=== PATIENT | male | born 1940 | race African-American/Black ===

== ENCOUNTER → 2018-12-12 | Outpatient (CLI) | payer MEDICARE ==
[~2018-12-12] MED LIST: AMLO10TA82 PO; ASP81TEC PO; ATOR80TA PO; CARV12.53 PO; FAMO20TA5 PO; HYDR-3004 PO; ISOS30TA3 PO; LISI10TA PO; NTR.4SL SL; WRF5T PO
[2018-12-12 09:40] LABS: ALANINE AMINOTRANSFERASE 37 U/L (0-55); ALBUMIN 4.6 GM/DL (3.2-4.5); ALKALINE PHOSPHATASE 74 U/L (40-136); BILIRUBIN,TOTAL 0.7 MG/DL (0.1-1.0); BUN/CREATININE RATIO 11; CALCIUM 9.5 MG/DL (8.5-10.1); CARBON DIOXIDE 26 MMOL/L (21-32); CHLORIDE 101 MMOL/L (98-107); CREATININE SERUM 1.31 MG/DL (0.60-1.30); GFR ESTIMATED > 60; GLUCOSE 121 MG/DL (70-105); POTASSIUM 4.6 MMOL/L (3.6-5.0); SODIUM 139 MMOL/L (135-145); TOTAL PROTEIN 7.7 GM/DL (6.4-8.2)
[2018-12-12 16:03] LABS: FREE T4 (FREE THYROXINE) 1.11 NG/DL (0.70-1.48)
== END ==
LOC: LAB FS 08:26
PROVIDERS: ATTEND Pediatrics
DX: I10 Essential (primary) hypertension (principal); E03.9 Hypothyroidism, unspecified; E11.9 Type 2 diabetes mellitus without complications
CPT/HCPCS: 36415; 80053; 80061; 83036; 84439; 84443

== ENCOUNTER → 2018-12-23 | Outpatient (CLI) | payer MEDICARE ==
--- NOTE | 2018-12-23 10:23 | Diagnostic Imaging Report ---
INDICATION: Left-sided sciatica pain TECHNIQUE: AP pelvis 9:48 AM CORRELATION STUDY: None FINDINGS: No acute pelvic fracture with the pectineal lines maintained. Other enthesopathy about the iliac crest. SI joints appear unremarkable. There is somewhat asymmetric expanded appearance about the left inferior pubic rami and ischial tuberosity. This is likely not chronic in nature. While somewhat atypical, possibility of Paget's would be difficult to exclude. The bilateral hip joints demonstrate mild asymmetric narrowing of the left compared to the right. Extensive vascular calcification. Radiation seed implants at the expected location of the prostate bed. IMPRESSION: Negative for acute bony abnormality about the pelvis. Expanded appearance about the left inferior pubic ramus likely chronic of no significance. Dictated by: Dictated on workstation # [id number]
--- NOTE | 2018-12-23 10:25 | Diagnostic Imaging Report ---
INDICATION: Left-sided sciatica, pain in buttocks TECHNIQUE: AP, Lateral and Spot imaging of the lumbar spine CORRELATION STUDY: None FINDINGS: Mild rightward curvature lumbar spine. Trace anterolisthesis L4 on L5 and L5 on S1 likely degenerative. Multilevel disc space narrowing throughout the most pronounced L5-S1 level. Rather pronounced hypertrophic facet arthropathy L4-5 and L5-S1 level. Very slight asymmetric sclerosis about superior L3 endplate. SI joints appearing unremarkable. Dense vascular calcification present. Radiation seed implants are present. Mild degenerative change joint space narrowing of bilateral hip joints. IMPRESSION: Advance multiple degenerative change with hypertrophic facet arthropathy particularly lower lumbar spine. Component of foraminal narrowing owing to the hypertrophic changes not excluded and suspect. Dictated by: Dictated on workstation # [id number]
--- NOTE | 2018-12-23 10:51 | Diagnostic Imaging Report ---
INDICATION: Buttock pain. COMPARISON: AP pelvis performed concurrently. TECHNIQUE: Lateral view of the pelvis/sacrum. FINDINGS AND IMPRESSION: 1. No displaced fracture in the sacrum or coccyx. 2. Extensive vascular calcifications are noted. 3. Please see lumbar spine dictation for details of the degenerative changes of the lumbar spine. Dictated by: Dictated on workstation # [id number]
== END ==
LOC: RAD FS 09:23
PROVIDERS: ATTEND Nurse Practitioner
DX: M47.816 Spondylosis without myelopathy or radiculopathy, lumbar region (principal); M46.87 Other specified inflammatory spondylopathies, lumbosacral region; R52 Pain, unspecified
CPT/HCPCS: 72100; 72170

== ENCOUNTER → 2019-11-04 | Outpatient (CLI) | payer OTHER ==
--- NOTE | 2019-11-04 11:50 | Diagnostic Imaging Report ---
Indication: Coronary artery disease PA and lateral chest There are postoperative changes from CABG surgery. There is a unipolar pacemaker with ICD. Heart is mildly enlarged. Pulmonary vascularity is normal. Lungs are clear. There are no effusions or pneumothoraces. IMPRESSION: Postsurgical changes in the chest. Mild cardiomegaly without evidence of pulmonary venous hypertension. Dictated by: Dictated on workstation # [id number]
== END ==
LOC: RAD FS 11:02
PROVIDERS: ATTEND Internal Medicine Clinical Cardiac Electrophysiology
DX: Z01.818 Encounter for other preprocedural examination (principal); Z45.02 Encounter for adjustment and management of automatic implantable cardiac defibrillator; I47.2 Ventricular tachycardia; I25.10 Atherosclerotic heart disease of native coronary artery without angina pectoris; I51.7 Cardiomegaly; Z95.810 Presence of automatic (implantable) cardiac defibrillator; Z95.1 Presence of aortocoronary bypass graft
CPT/HCPCS: 71046

== ENCOUNTER → 2019-11-04 | Outpatient (CLI) | payer MEDICARE, OTHER ==
[2019-11-04 12:33] LABS: BASOPHILS % (AUTO) 1 % (0-10); EOSINOPHILS % (AUTO) 4 % (0-10); HEMATOCRIT 44 % (40-54); HEMOGLOBIN 14.4 G/DL (13.3-17.7); LYMPHOCYTES # (AUTO) 1.2 X 10^3 (1.0-4.0); LYMPHOCYTES % (AUTO) 25 % (12-44); MEAN CORPUSCULAR HEMOGLOBIN 30 PG (25-34); MEAN CORPUSCULAR HGB CONC 33 G/DL (32-36); MEAN CORPUSCULAR VOLUME 91 FL (80-99); MEAN PLATELET VOLUME 12.6 FL (7.4-10.4); MONOCYTES # (AUTO) 0.7 X 10^3 (0.0-1.0); MONOCYTES % (AUTO) 15 % (0-12); NEUTROPHILS # (AUTO) 2.7 X 10^3 (1.8-7.8); NEUTROPHILS % (AUTO) 55 % (42-75); PLATELET COUNT 188 10^3/uL (130-400); RED CELL DISTRIBUTION WIDTH 13.7 % (10.0-14.5); WHITE BLOOD COUNT 4.8 10^3/uL (4.3-11.0)
[2019-11-04 12:34] LABS: INR 1.2 (0.8-1.4); PROTHROMBIN TIME PATIENT 15.2 SEC (12.2-14.7)
[2019-11-04 12:34] LABS: EOSINOPHILS # (AUTO) 0.2 10^3/uL (0.0-0.3)
[2019-11-04 12:36] LABS: BUN/CREATININE RATIO 14; CALCIUM 9.5 MG/DL (8.5-10.1); CARBON DIOXIDE 26 MMOL/L (21-32); CHLORIDE 103 MMOL/L (98-107); CREATININE SERUM 1.18 MG/DL (0.60-1.30); GFR ESTIMATED > 60; GLUCOSE 105 MG/DL (70-105); MAGNESIUM 2.1 MG/DL (1.6-2.4); POTASSIUM 4.3 MMOL/L (3.6-5.0); SODIUM 140 MMOL/L (135-145)
== END ==
LOC: LAB FS 11:11
PROVIDERS: ATTEND Internal Medicine Clinical Cardiac Electrophysiology
DX: Z45.02 Encounter for adjustment and management of automatic implantable cardiac defibrillator (principal); Z01.818 Encounter for other preprocedural examination; I47.2 Ventricular tachycardia; Z95.1 Presence of aortocoronary bypass graft
CPT/HCPCS: 36415; 80048; 83735; 85025; 85610; 85730

== ENCOUNTER 2020-01-19 23:23 | Emergency (ER) | payer MEDICARE ==
[~2020-01-19] VITALS: Ht 180.3 cm; Wt 118.1 kg
--- OUTSIDE RECORDS SUMMARY | 2020-01-19 23:30 | XMS REPORT | Continuity of Care Document ---
Author Organization Unknown Address Unknown Phone Unavailable Allergies Active Description Code Type Severity Reaction Onset Reported/Identified Relationship to Patient Clinical Status Yes Iodinated Contrast Media [id number] Drug Allergy Unknown N/A 12/18/2011 Yes Iodinated Contrast- Oral and IV Dye [id number] Drug Allergy Unknown N/A 12/18/2011 Medications There is no data. Problems Date Dx Coded Attending Type Code Diagnosis Diagnosed By 12/15/2018 MADINA DEL CID MD, Ot E03.9 HYPOTHYROIDISM, UNSPECIFIED 12/15/2018 MADINA DEL CID MD, Ot E11.9 TYPE 2 DIABETES MELLITUS WITHOUT COMPLIC 12/15/2018 MADINA DEL CID MD, Ot I10 ESSENTIAL (PRIMARY) HYPERTENSION 12/23/2018 MARCELL OCASIOP Ot M46.87 OT INFLAMMATORY SPONDYLOPATHIES, LUMBOS 12/23/2018 MARCELL OCASIOP Ot M47.816 SPONDYLOSIS W/O MYELOPATHY OR RADICULOPA 12/23/2018 MARCELL OCASIOP Ot R5 2 PAIN, UNSPECIFIED 12/24/2018 MARCELL OCASIO Ot M46.87 OT INFLAMMATORY SPONDYLOPATHIES, LUMBOS 12/24/2018 MARCELL OCASIOP Ot M47.816 SPONDYLOSIS W/O MYELOPATHY OR RADICULOPA 12/24/2018 MARCELL OCASIOP Ot R5 2 PAIN, UNSPECIFIED 05/18/2019 MARCELL OCASIO CASH ANALYST Ot M46.87 OT INFLAMMATORY SPONDYLOPATHIES, LUMBOS 05/18/2019 MARCELL OCASIOP Ot M47.816 SPONDYLOSIS W/O MYELOPATHY OR RADICULOPA 05/18/2019 MARCELL OCASIO Ot R5 2 PAIN, UNSPECIFIED 11/04/2019 MADINA DEL CID MD, Ot E03.9 HYPOTHYROIDISM, UNSPECIFIED 11/04/2019 MADINA DEL CID MD Ot E11.9 TYPE 2 DIABETES MELLITUS WITHOUT COMPLIC 11/04/2019 MADINA DEL CID MD, Ot I10 ESSENTIAL (PRIMARY) HYPERTENSION 11/04/2019 MARCELL OCASIO Ot M46.87 OT INFLAMMATORY SPONDYLOPATHIES, LUMBOS 11/04/2019 MARCELL OCASIO Ot M47.816 SPONDYLOSIS W/O MYELOPATHY OR RADICULOPA 11/04/2019 MARCELL OCASIO Ot R5 2 PAIN, UNSPECIFIED 11/06/2019 CHER MCCLAIN MD Ot I47 .2 VENTRICULAR TACHYCARDIA 11/06/2019 CHER MCCLAIN MD Ot Z01.818 ENCOUNTER FOR OTHER PREPROCEDURAL EXAMIN 11/06/2019 CHER MCCLAIN MD Ot Z45.02 ENCNTR FOR ADJUST AND MGMT OF AUTOMATIC 11/06/2019 CHER MCCLAIN MD Ot Z95 .1 PRESENCE OF AORTOCORONARY BYPASS GRAFT 11/06/2019 MADINA DEL CID MD Ot E03.9 HYPOTHYROIDISM, UNSPECIFIED 11/06/2019 MADINA DEL CID MD Ot E11.9 TYPE 2 DIABETES MELLITUS WITHOUT COMPLIC 11/06/2019 MADINA DEL CID MD Ot I10 ESSENTIAL (PRIMARY) HYPERTENSION 11/06/2019 MARCELL OCASIO Ot M46.87 OT INFLAMMATORY SPONDYLOPATHIES, LUMBOS 11/06/2019 MARCELL OCASIO Ot M47.816 SPONDYLOSIS W/O MYELOPATHY OR RADICULOPA 11/06/2019 MARCELL OCASIO Ot R5 2 PAIN, UNSPECIFIED 11/06/2019 CHER MCCLAIN MD Ot I47 .2 VENTRICULAR TACHYCARDIA 11/06/2019 CHER MCCLAIN MD Ot Z01.818 ENCOUNTER FOR OTHER PREPROCEDURAL EXAMIN 11/06/2019 CHER MCCLAIN MD Ot Z45.02 ENCNTR FOR ADJUST AND MGMT OF AUTOMATIC 11/06/2019 CHER MCCLAIN MD Ot Z95 .1 PRESENCE OF AORTOCORONARY BYPASS GRAFT 11/07/2019 CHER MCCLAIN MD Ot I47 .2 VENTRICULAR TACHYCARDIA 11/07/2019 CHER MCCLAIN MD Ot Z01.818 ENCOUNTER FOR OTHER PREPROCEDURAL EXAMIN 11/07/2019 CHER MCCLAIN MD Ot Z45.02 ENCNTR FOR ADJUST AND MGMT OF AUTOMATIC 11/07/2019 CHER MCCLAIN MD Ot Z95 .1 PRESENCE OF AORTOCORONARY BYPASS GRAFT Procedures There is no data. Results Test Result Range Comprehensive metabolic panel - 12/12/18 08:55 Serum or plasma sodium measurement (moles/volume) 139 mmol/L 135-145 Serum or plasma potassium measurement (moles/volume) 4.6 mmol/L 3.6-5.0 Serum or plasma chloride measurement (moles/volume) 101 mmol/L 98-107 Carbon dioxide 26 mmol/L 21-32 Serum or plasma anion gap determination (moles/volume) 12 mmol/L 5-14 Serum or plasma urea nitrogen measurement (mass/volume ) 15 mg/dL 7-18 Serum or plasma creatinine measurement (mass/volume) 1.31 mg/dL 0.60-1.30 Serum or plasma urea nitrogen/creatinine mass ratio 11 NRG Serum or plasma creatinine measurement w ith calculation of estimated glomerular filtration rate > NRG Serum or plasma glucose measurement (mass/volume) 121 mg/dL 70-105 Serum or plasma calcium measurement (mass/volume) 9.5 mg/dL 8.5-10.1 Serum or plasma total bilirubin measurement (mass/volu me) 0.7 mg/dL 0.1-1.0 Serum or plasma alkaline phosphatase [place] surement (enzymatic activity/volume) 74 U/L 40-136 Serum or plasma aspartate aminotransfera se measurement (enzymatic activity/volume) 25 U/L 5-34 Serum or plasma alanine aminotransferase measurement (enzymatic activity/volume) 37 U/L 0-55 Serum or plasma protein measurement (mass/volume) 7.7 g/dL 6.4-8.2 Serum or plasma albumin measurement (mass/volume) 4.6 g/dL 3.2-4.5 Lipid 1996 panel - 12/12/18 08:55 Serum or plasma triglyceride measurement (mass/volume) 56 mg/dL <150 Serum or plasma cholesterol measurement (mass/volume) 167 mg/dL < 200 Serum or plasma cholesterol in HDL measurement (mass/v olume) 36 mg/dL 40-60 Cholesterol in LDL [mass/volume] in serum or plasma by direct assay 118 mg/dL 1-129 Serum or plasma cholesterol in VLDL measurement (mass/ volume) 11 mg/dL 5-40 THYROID STIMULATING HORMONE - 12/12/18 0 8:55 THYROID STIMULATING HORMONE 1.76 u[iU]/mL 0.35-4.94 Serum or plasma thyroxine (T4) free jeff urement (mass/volume) - 12/12/18 08:55 Serum or plasma thyroxine (T4) free measurement (mass/ volume) 1.11 ng/dL 0.70-1.48 Hemoglobin A1c - 12/12/18 08:55 Blood hemoglobin A1C measurement (mass/volume) 6.3 % 4.0-5.6 MEAN BLOOD GLUCOSE 134 % <=126 Complete blood count (CBC) with automate d white blood cell (WBC) differential - 11/04/19 11:22 Blood leukocytes automated count (number/volume) 4.8 10*3/uL 4.3-11.0 Blood erythrocytes automated count (number/volume) 4.81 10*6/uL 4.35-5.85 Venous blood hemoglobin measurement (mass/volume) 14.4 g/dL 13.3-17.7 Blood hematocrit (volume fraction) 44 % 40-54 Automated erythrocyte mean corpuscular volume 91 [ foz_us] 80-99 Automated erythrocyte mean corpuscular h emoglobin (mass per erythrocyte) 30 pg 25-34 Automated erythrocyte mean corpuscular h emoglobin concentration measurement (mass/volume) 33 g/dL 32-36 Automated erythrocyte distribution width ratio 13. 7 % 10.0- 14.5 Automated blood platelet count (count/volume) 188 10*3/uL 130-400 Automated blood platelet mean volume measurement 12.6 [foz_us] 7.4-10.4 Automated blood neutrophils/100 leukocytes 55 % 42-75 Automated blood lymphocytes/100 leukocytes 25 % 12-44 Blood monocytes/100 leukocytes 15 % 0-12 Automated blood eosinophils/100 leukocytes 4 % 0-10 Automated blood basophils/100 leukocytes 1 % 0-10 Blood neutrophils automated count (number/volume) 2.7 10*3 1.8-7.8 Blood lymphocytes automated count (number/volume) 1.2 10*3 1.0-4.0 Blood monocytes automated count (number/volume) 0. 7 10*3 0.0-1.0 Automated eosinophil count 0.2 10*3/uL 0 .0-0.3 Automated blood basophil count (count/volume) 0.0 10*3/uL 0.0-0.1 Whole blood basic metabolic panel - 10/11 02/26 11:22 Serum or plasma sodium measurement (moles/volume) 140 mmol/L 135-145 Serum or plasma potassium measurement (moles/volume) 4.3 mmol/L 3.6-5.0 Serum or plasma chloride measurement (moles/volume) 103 mmol/L 98-107 Carbon dioxide 26 mmol/L 21-32 Serum or plasma anion gap determination (moles/volume) 11 mmol/L 5-14 Serum or plasma urea nitrogen measurement (mass/volume ) 16 mg/dL 7-18 Serum or plasma creatinine measurement (mass/volume) 1.18 mg/dL 0.60-1.30 Serum or plasma urea nitrogen/creatinine mass ratio 14 NRG Serum or plasma creatinine measurement w ith calculation of estimated glomerular filtration rate > NRG Serum or plasma glucose measurement (mass/volume) 105 mg/dL 70-105 Serum or plasma calcium measurement (mass/volume) 9.5 mg/dL 8.5-10.1 Magnesium - 11/04/19 11:22 Magnesium 2.1 mg/dL 1.6-2.4 PT panel in platelet poor plasma by coag ulation assay - 11/04/19 11:35 Prothrombin time (PT) in platelet poor plasma by coagu lation assay 15.2 s 12.2-14.7 INR in platelet poor plasma or blood by coagulation as say 1.2 0.8-1.4 Activated partial thromboplastin time (a PTT) in platelet poor plasma bycoagulation assay - 11/04/19 11:35 Activated partial thromboplastin time (a PTT) in platelet poor plasma bycoagulation assay 33 s 24-35 Encounters ACCT No. Visit Date/Time Discharge Status Pt. Type Provider Facility Loc./Unit Complaint [id number] 11/04/2019 11:11:00 020 23:59:59 CLS Outpatient CHER MCCLIAN MD [facility] LAB FS CBC MAGNESIUM BMP PROTIME PTT [id number] 11/04/2019 11:02:00 020 23:59:59 CLS Outpatient CHER MCCLAIN MD [facility] RAD FS Z95.1 I47.2 Z45.02 Z01.818 [id number] 12/23/2018 09:23:00 019 23:59:59 CLS Outpatient MARCELL OCASIO [facility] RAD FS R52; G57.02 [id number] 12/12/2018 08:26:00 019 23:59:59 CLS Outpatient NEHEMIAS PARIS, MADINA seaman [facility] LAB FS 401.9
--- NOTE | 2020-01-19 23:49 | ED Cardiac General ---
History of Present Illness General Stated Complaint: DEFIBRILATOR DISCHARGE Source: patient, EMS Exam Limitations: no limitations History of Present Illness Date Seen by Provider: January 19, 2020 Time Seen by Provider: 23:40 Initial Comments Patient presents w concern of his defibrillator going off. Says he felt a little light headed and like he was losing vision, then it shocked him. Never lost consciousness. Called 911. Denies CP or SOA. En -route w EMS, Defib discharged a second time w preceding sensation of light headedness. Hx CAD w CABG. REcent replacement of pacemaker/ defibrillator in November @ [facility] because his previous was getting too old. Has had no problems w this one until today. Allergies and Home Medications Allergies Coded Allergies: Iodinated Contrast Media (Unverified Allergy, Unknown, 01/20/20) Home Medications Amiodarone HCl 200 Mg Tablet, 200 MG PO DAILY, (Reported) Amlodipine Besylate 10 Mg Tablet, 1 EACH PO DAILY, (Reported) Apixaban 5 Mg Tablet, 5 MG PO DAILY, (Reported) Atorvastatin Calcium 80 Mg Tablet, 1 EACH PO DAILY, (Reported) Carvedilol 25 Mg Tablet, 25 MG PO BID, (Reported) Furosemide 40 Mg Tablet, 40 MG PO DAILY, (Reported) Hydralazine Hcl 50 Mg Tablet, 1 EACH PO TID, (Reported) Hydrocodone/Acetaminophen 1 Each Tablet, 1 EACH PO Q4H PRN for PAIN-MILD (1-4), (Reported) Isosorbide Mononitrate 30 Mg Tab.sr.24h, 1 EACH PO DAILY, (Reported) Lisinopril 10 Mg Tablet, 10 MG PO DAILY, (Reported) Nitroglycerin 0.4 Mg Subl, 0.4 MG SL NEEDED, (Reported) Potassium Chloride 20 Meq Tab.er.prt, 20 MEQ PO DAILY, (Reported) Spironolactone 25 Mg Tablet, 12.5 MG PO DAILY, (Reported) Tamsulosin HCl 0.4 Mg Cap, 0.4 MG PO DAILY, (Reported) Patient Home Medication List Home Medication List Reviewed: Yes Review of Systems Review of Systems Constitutional: dizziness (preceding defibrillator discharging); No fever, No malaise, No weakness Cardiovascular: See HPI; Denies Chest Pain, Denies Edema, Denies Irregular Heart Rate; Lightheadedness; Denies Palpitations, Denies Syncope Gastrointestinal: Denies Abdominal Pain, Denies Diarrhea, Denies Poor Appetite, Denies Vomiting Musculoskeletal: No back pain, No joint pain Skin: No change in color Psychiatric/Neurological: Denies Headache, Denies Numbness, Denies Paresthesia Past Mavomxc-Qeciup-Iolwvf Hx Past Med/Social Hx: Reviewed Nursing Past Med/Soc Hx Patient Social History Recent Foreign Travel: No Contact w/Someone Who Travel: No Past Medical History Reproductive Disorders: No Physical Exam Vital Signs Vital Signs - First Documented 01/19/20 23:24 Temp 36.9 Pulse 67 Resp 20 B/P (MAP) 145/78 (100) Pulse Ox 94 O2 Delivery Room Air Capillary Refill : Height, Weight, BMI Height: '" Weight: lbs. oz. kg; BMI Method: General Appearance: No Apparent Distress, WD/WN HEENT: Normal ENT Inspection Neck: Full Range of Motion, Non Tender, Supple; No JVD Respiratory: Chest Non Tender, Lungs Clear, Normal Breath Sounds, No Accessory Muscle Use, No Respiratory Distress Cardiovascular: Regular Rate, Rhythm, No Edema, No Gallop, No JVD Gastrointestinal: Non Tender, Soft Extremity: Normal Capillary Refill, Normal Inspection, Normal Range of Motion, Non Tender, No Calf Tenderness Neurologic/Psychiatric: Alert, Oriented x3, No Motor/Sensory Deficits Skin: Normal Color, Warm/Dry Progress/Results/Core Measures Results/Orders Lab Results Laboratory Tests Test 01/19/20 23:36 Range/Units White Blood Count 5.6 4.3-11.0 10^3/uL Red Blood Count 4.51 4.35-5.85 10^6/uL Hemoglobin 13.9 13.3-17.7 G/DL Hematocrit 42 40-54 % Mean Corpuscular Volume 92 80-99 FL Mean Corpuscular Hemoglobin 31 25-34 PG Mean Corpuscular Hemoglobin Concent 34 32-36 G/DL Red Cell Distribution Width 13.7 10.0-14.5 % Platelet Count 178 130-400 10^3/uL Mean Platelet Volume 11.7 H 7.4-10.4 FL Neutrophils (%) (Auto) 54 42-75 % Lymphocytes (%) (Auto) 29 12-44 % Monocytes (%) (Auto) 11 0-12 % Eosinophils (%) (Auto) 5 0-10 % Basophils (%) (Auto) 1 0-10 % Neutrophils # (Auto) 3.0 1.8-7.8 X 10^3 Lymphocytes # (Auto) 1.6 1.0-4.0 X 10^3 Monocytes # (Auto) 0.6 0.0-1.0 X 10^3 Eosinophils # (Auto) 0.3 0.0-0.3 10^3/uL Basophils # (Auto) 0.0 0.0-0.1 10^3/uL Prothrombin Time 15.8 H 12.2-14.7 SEC INR Comment 1.2 0.8-1.4 Sodium Level 139 135-145 MMOL/L Potassium Level 4.1 3.6-5.0 MMOL/L Chloride Level 103 98-107 MMOL/L Carbon Dioxide Level 24 21-32 MMOL/L Anion Gap 12 5-14 MMOL/L Blood Urea Nitrogen 24 H 7-18 MG/DL Creatinine 1.19 0.60-1.30 MG/DL Estimat Glomerular Filtration Rate > 60 BUN/Creatinine Ratio 20 Glucose Level 126 H 70-105 MG/DL Calcium Level 9.5 8.5-10.1 MG/DL Corrected Calcium 9.3 8.5-10.1 MG/DL Magnesium Level 1.8 1.6-2.4 MG/DL Total Bilirubin 0.5 0.1-1.0 MG/DL Aspartate Amino Transf (AST/SGOT) 33 5-34 U/L Alanine Aminotransferase (ALT/SGPT) 48 0-55 U/L Alkaline Phosphatase 95 40-136 U/L Troponin I < 0.30 <0.30 NG/ML Total Protein 7.0 6.4-8.2 GM/DL Albumin 4.3 3.2-4.5 GM/DL My Orders Orders - ROVENSTINE,SANDRA L DO Ed Iv/Invasive Line Start (01/19/20 23:44) Chest 1 View Ap/Pa Only (01/19/20 23:44) Ekg Tracing (01/19/20 23:44) Cbc With Automated Diff (01/19/20 23:44) Comprehensive Metabolic Panel (01/19/20 23:44) Magnesium (01/19/20 23:44) Troponin I Fs (01/19/20 23:44) Protime With Inr (01/19/20 23:44) Magnesium 1 Gm/100 Ml Ivpb (Magnesium Bell (01/20/20 00:45) Vital Signs/I&O 01/19/20 23:24 Temp 36.9 Pulse 67 Resp 20 B/P (MAP) 145/78 (100) Pulse Ox 94 O2 Delivery Room Air Progress Progress Note : Progress Note Uneventful ER stay. Normal eval without acute abnl. Transfer to [facility] for further eval Initial ECG Impression Time: 23:40 Initial ECG Rate: 65 Initial ECG Intervals: Normal Comment paced rhythm. IVCD. Departure Communication (Admissions) 0014- called Dr Smith, advised to call Cardio 0015- spoke to Dr Bustamante, says he is happy to admit pt, but he would better be served where he has been receiving care as he will need further eval and possible tx. 0040- spoke to Dr Reyes @ [facility] who accepts for transfer to their ICU. Advises 2 g Mag IV Impression Primary Impression: Defibrillator discharge Disposition: XFER SHT-TRM HOSP Condition: Stable Admissions Decision to Admit Reason: Admit from ER (General) Time/Decision to Admit Time: 23:51 Departure-Patient Inst. Referrals: MADINA DEL CID MD (PCP/Family) Primary Care Physician SANDRA HUNTER DO January 19, 2020 23:49
[2020-01-19 23:54] LABS: HEMATOCRIT 42 % (40-54); HEMOGLOBIN 13.9 G/DL (13.3-17.7); MEAN CORPUSCULAR HEMOGLOBIN 31 PG (25-34); MEAN CORPUSCULAR HGB CONC 34 G/DL (32-36); MEAN CORPUSCULAR VOLUME 92 FL (80-99); PLATELET COUNT 178 10^3/uL (130-400); RED CELL DISTRIBUTION WIDTH 13.7 % (10.0-14.5); WHITE BLOOD COUNT 5.6 10^3/uL (4.3-11.0)
[2020-01-19 23:55] LABS: BASOPHILS % (AUTO) 1 % (0-10); EOSINOPHILS # (AUTO) 0.3 10^3/uL (0.0-0.3); EOSINOPHILS % (AUTO) 5 % (0-10); LYMPHOCYTES # (AUTO) 1.6 X 10^3 (1.0-4.0); LYMPHOCYTES % (AUTO) 29 % (12-44); MEAN PLATELET VOLUME 11.7 FL (7.4-10.4); MONOCYTES # (AUTO) 0.6 X 10^3 (0.0-1.0); MONOCYTES % (AUTO) 11 % (0-12); NEUTROPHILS % (AUTO) 54 % (42-75)
[2020-01-20 00:01] LABS: INR 1.2 (0.8-1.4); PROTHROMBIN TIME PATIENT 15.8 SEC (12.2-14.7)
[2020-01-20 00:06] LABS: BILIRUBIN,TOTAL 0.5 MG/DL (0.1-1.0); BUN/CREATININE RATIO 20; CALCIUM 9.5 MG/DL (8.5-10.1); CARBON DIOXIDE 24 MMOL/L (21-32); CHLORIDE 103 MMOL/L (98-107); CREATININE SERUM 1.19 MG/DL (0.60-1.30); GFR ESTIMATED > 60; GLUCOSE 126 MG/DL (70-105); MAGNESIUM 1.8 MG/DL (1.6-2.4); POTASSIUM 4.1 MMOL/L (3.6-5.0); SODIUM 139 MMOL/L (135-145)
[2020-01-20 00:07] LABS: ALANINE AMINOTRANSFERASE 48 U/L (0-55); ALBUMIN 4.3 GM/DL (3.2-4.5); ALKALINE PHOSPHATASE 95 U/L (40-136)
[2020-01-20] MEDS ORDERED: APIX5TAB PO (00:11)
[2020-01-20] MEDS ORDERED: HYDR-83 PO (00:11)
[2020-01-20] MEDS ORDERED: SPIR25TA PO (00:11)
[2020-01-20] MEDS ORDERED: FURO-124 PO (00:11)
[2020-01-20] MEDS ORDERED: AMIO200T4 PO (00:11)
[2020-01-20] MEDS ORDERED: TMSL.4C PO (00:11)
[2020-01-20] MEDS ORDERED: POTA20TA15 PO (00:11)
[2020-01-20] MEDS ORDERED: CARV25TA PO (00:11)
[2020-01-20] MEDS ORDERED: MAGNESIUM 1 GM/100 ML IVPB 100 ML IV SCH (00:45)
[2020-01-20 01:08] VITALS: BP 121/65
--- NOTE | 2020-01-20 07:24 | Diagnostic Imaging Report ---
INDICATION: Defibrillator discharging. EXAMINATION: Chest 01/19/2020 COMPARISON: 11/04/2019 FINDINGS: Left-sided defibrillator device is noted and stable from previous with sternotomy wires and other mediastinal clips present. Heart is enlarged. Pulmonary vasculature appears slightly congested. There are no infiltrates or effusions. Mild pulmonary edema suspected. IMPRESSION: 1. Likely mild pulmonary edema. Post surgical changes as above. Dictated by: Dictated on workstation # [id number]
== END 2020-01-20 01:08 | disposition short-term general hospital (02) ==
LOC: EDUNIT# 23:23 → ER FS 23:26
DX: T82.198A Other mechanical complication of other cardiac electronic device, initial encounter (principal); I25.10 Atherosclerotic heart disease of native coronary artery without angina pectoris; Z79.01 Long term (current) use of anticoagulants; Z95.1 Presence of aortocoronary bypass graft
CPT/HCPCS: 36415; 71045; 80053; 83735; 84484; 85025; 85610; 93005; 96365

== ENCOUNTER 2020-01-27 09:57 | Emergency (ER) | payer MEDICARE ==
[~2020-01-27] VITALS: Ht 180.3 cm; Wt 118.2 kg
[~2020-01-27 09:57] MED LIST changes: +AMIO200T4 PO; +APIX5TAB PO; +CARV25TA PO; +FURO-124 PO; +HYDR-83 PO; +POTA20TA15 PO; +SPIR25TA PO; +TMSL.4C PO
[2020-01-27] MEDS ORDERED: ONDANSETRON 4 MG/2 ML (SDV) Z0FRAN IVP ONE (10:15)
[2020-01-27] MEDS ORDERED: NS IV 1000 ML 1,000 ML IV SCH (10:15)
--- NOTE | 2020-01-27 10:15 | ED General ---
General Chief Complaint: Cardiac/General Problems History of Present Illness Date Seen by Provider: January 27, 2020 Time Seen by Provider: 10:12 Initial Comments Patient presenting to emergency department via EMS for evaluation of a near syncopal episode. He was on the toilet trying to have a bowel movement when he started to become very lightheaded and as if he could pass out and asked his for assistance. He never did lose consciousness but said he felt very nauseated. He had some orthostasis for EMS but says he is feeling better now with just some mild lightheaded sensation and nausea. He denies any pain vision changes unilateral weakness numbness or tingling before or after the episode. He was seen in this emergency department 8 days ago and was transferred to [facility] as his defibrillator was going off and had a heart catheterization however there was no critical stenoses. He does have a history of a CABG. He denies any defibrillations or shocks today. He is in no obvious distress with normal vital signs. Allergies and Home Medications Allergies Coded Allergies: Iodinated Contrast Media (Unverified Allergy, Unknown, 01/20/20) Home Medications Amiodarone HCl 200 Mg Tablet, 200 MG PO DAILY, (Reported) Amlodipine Besylate 10 Mg Tablet, 1 EACH PO DAILY, (Reported) Apixaban 5 Mg Tablet, 5 MG PO DAILY, (Reported) Atorvastatin Calcium 80 Mg Tablet, 1 EACH PO DAILY, (Reported) Carvedilol 25 Mg Tablet, 25 MG PO BID, (Reported) Furosemide 40 Mg Tablet, 40 MG PO DAILY, (Reported) Hydralazine Hcl 50 Mg Tablet, 1 EACH PO TID, (Reported) Hydrocodone/Acetaminophen 1 Each Tablet, 1 EACH PO Q4H PRN for PAIN-MILD (1-4), (Reported) Isosorbide Mononitrate 30 Mg Tab.sr.24h, 1 EACH PO DAILY, (Reported) Lisinopril 10 Mg Tablet, 10 MG PO DAILY, (Reported) Nitroglycerin 0.4 Mg Subl, 0.4 MG SL NEEDED, (Reported) Potassium Chloride 20 Meq Tab.er.prt, 20 MEQ PO DAILY, (Reported) Spironolactone 25 Mg Tablet, 12.5 MG PO DAILY, (Reported) Tamsulosin HCl 0.4 Mg Cap, 0.4 MG PO DAILY, (Reported) Patient Home Medication List Home Medication List Reviewed: Yes Review of Systems Review of Systems Constitutional: dizziness EENTM: no symptoms reported Respiratory: no symptoms reported Cardiovascular: no symptoms reported Gastrointestinal: nausea Musculoskeletal: no symptoms reported Psychiatric/Neurological: No Symptoms Reported All Other Systems Reviewed Negative Unless Noted: Yes Past Izqujft-Htfjba-Vxpoqe Hx Past Medical History Surgeries: Yes CABG Respiratory: No Cardiac: Yes (CONGESTIVE HEART FAILURE) Hypertension Neurological: Yes Stroke Reproductive Disorders: No Sexually Transmitted Disease: No Genitourinary: No Gastrointestinal: No Musculoskeletal: No Endocrine: No HEENT: No Cancer: Yes Prostate Did You Recieve Any Treatments: Yes What Type of Treatment Did You: Chemotherapy Psychosocial: No Integumentary: No Blood Disorders: No Physical Exam Vital Signs Vital Signs - First Documented 01/27/20 09:57 Temp 36.1 Pulse 69 Resp 24 B/P (MAP) 127/63 (84) Pulse Ox 96 O2 Delivery Room Air Capillary Refill : Height, Weight, BMI Height: '" Weight: lbs. oz. kg; 36.00 BMI Method: General Appearance: No Apparent Distress HEENT: PERRL/EOMI Neck: Supple Respiratory: No Respiratory Distress Cardiovascular: Regular Rate, Rhythm Gastrointestinal: Non Tender, Soft Back: Normal Inspection Extremity: Normal Capillary Refill Neurologic/Psychiatric: Alert, Oriented x3 Skin: Warm/Dry Progress/Results/Core Measures Suspected Sepsis SIRS Temperature: Pulse: Respiratory Rate: Laboratory Tests 01/27/20 11:45: White Blood Count 5.3 Blood Pressure / Mean: Laboratory Tests 01/27/20 11:01: INR Comment 1.3 01/27/20 11:45: Creatinine 1.24, Platelet Count 139, Total Bilirubin 0.8 Results/Orders Lab Results Laboratory Tests Test 01/27/20 11:01 01/27/20 11:45 Range/Units Prothrombin Time 16.2 H 12.2-14.7 SEC INR Comment 1.3 0.8-1.4 Activated Partial Thromboplast Time 25 24-35 SEC White Blood Count 5.3 4.3-11.0 10^3/uL Red Blood Count 4.84 4.35-5.85 10^6/uL Hemoglobin 14.8 13.3-17.7 G/DL Hematocrit 45 40-54 % Mean Corpuscular Volume 93 80-99 FL Mean Corpuscular Hemoglobin 31 25-34 PG Mean Corpuscular Hemoglobin Concent 33 32-36 G/DL Red Cell Distribution Width 13.7 10.0-14.5 % Platelet Count 139 130-400 10^3/uL Mean Platelet Volume 12.2 H 7.4-10.4 FL Neutrophils (%) (Auto) 71 42-75 % Lymphocytes (%) (Auto) 15 12-44 % Monocytes (%) (Auto) 11 0-12 % Eosinophils (%) (Auto) 2 0-10 % Basophils (%) (Auto) 1 0-10 % Neutrophils # (Auto) 3.8 1.8-7.8 X 10^3 Lymphocytes # (Auto) 0.8 L 1.0-4.0 X 10^3 Monocytes # (Auto) 0.6 0.0-1.0 X 10^3 Eosinophils # (Auto) 0.1 0.0-0.3 10^3/uL Basophils # (Auto) 0.0 0.0-0.1 10^3/uL Sodium Level 140 135-145 MMOL/L Potassium Level 4.7 3.6-5.0 MMOL/L Chloride Level 102 98-107 MMOL/L Carbon Dioxide Level 25 21-32 MMOL/L Anion Gap 13 5-14 MMOL/L Blood Urea Nitrogen 16 7-18 MG/DL Creatinine 1.24 0.60-1.30 MG/DL Estimat Glomerular Filtration Rate > 60 BUN/Creatinine Ratio 13 Glucose Level 108 H 70-105 MG/DL Calcium Level 9.4 8.5-10.1 MG/DL Corrected Calcium 9.2 8.5-10.1 MG/DL Magnesium Level 2.0 1.6-2.4 MG/DL Total Bilirubin 0.8 0.1-1.0 MG/DL Aspartate Amino Transf (AST/SGOT) 32 5-34 U/L Alanine Aminotransferase (ALT/SGPT) 52 0-55 U/L Alkaline Phosphatase 95 40-136 U/L Troponin I < 0.30 <0.30 NG/ML Pro-B-Type Natriuretic Peptide 160.2 H <75.0 PG/ML Total Protein 7.3 6.4-8.2 GM/DL Albumin 4.2 3.2-4.5 GM/DL My Orders Orders - NEDRA ESCALONA DO Cbc With Automated Diff (01/27/20 10:03) Comprehensive Metabolic Panel (01/27/20 10:03) Ekg Tracing (01/27/20 10:03) Chest 1 View Ap/Pa Only (01/27/20 10:03) Troponin I Fs (01/27/20 10:03) Probnp Fs (01/27/20 10:03) Partial Thromboplastin Time (01/27/20 10:03) Protime With Inr (01/27/20 10:03) Magnesium (01/27/20 10:03) Ondansetron Injection (Zofran Injectio (01/27/20 10:15) Ns Iv 1000 Ml (Sodium Chloride 0.9%) (01/27/20 10:15) Medications Given in ED Current Medications Medications Dose Ordered Sig/Danni Route Start Time Stop Time Status Last Admin Dose Admin Ondansetron HCl 4 mg ONCE ONCE IVP 01/27/20 10:15 01/27/20 10:16 DC 01/27/20 11:13 4 MG Vital Signs/I&O 01/27/20 09:57 Temp 36.1 Pulse 69 Resp 24 B/P (MAP) 127/63 (84) Pulse Ox 96 O2 Delivery Room Air Capillary Refill : Progress Note : Progress Note Patient with history and physical exam most consistent with a vagal episode. Will check labs treat with IV fluids and Zofran and reassess. Patient's nausea resolved and he felt much less dizzy emergency department. He was able to ambulate without difficulty and his repeat neurologic exam is normal. His EKG is similar to priors and his blood work is normal as well. One thing I did discuss with the patient is that his heart rate and blood pressure has been on the lower side his entire emergency Department visit with his systolic blood pressure ranging from 105 to 1:15 and his diastolic blood pressure ranging from 55-65 and his heart rate ranging in the 60-70 range. He mentioned that he didn't go up on one of his medications after his recent hospitalization he believes his amiodarone was doubled. He did not have an updated medication list with him. I told him I believe he is likely overmedicated with blood pressure medicines and he should have these adjusted but given I do not have his medications that he should call his doctor when he gets home and let him know the symptoms that he is having and see if they want to adjust his medicines and see him in follow-up. Patient was told to follow primary care provider within 2-3 days and come back to the emergency Department sooner with worsening pain neurologic changes or other general concerns. Patient aware and agreeable with plan for discharge and verbalized understanding of the need for short-term follow-up and strict ED return precautions discussed as above. informed us he has pcp appt with Dr. Neves tomorrow. Departure Impression Primary Impression: Vaso vagal episode Additional Impressions: Near syncope Hypotension Nausea alone Disposition: HOME, SELF-CARE Condition: Stable Departure-Patient Inst. Referrals: MADINA NEVES MD (PCP/Family) Primary Care Physician Patient Instructions: Low Blood Pressure (DC), Vasovagal Response (DC) Scripts Ondansetron (Ondansetron Odt) 4 Mg Tab.rapdis 4 MG PO TID PRN for NAUSEA/VOMITING-1ST LINE, #10 TAB Prov: NEDRA ESCALONA DO 01/27/20 NEDRA ESCALONA DO January 27, 2020 10:15
--- NOTE | 2020-01-27 10:21 | Diagnostic Imaging Report ---
INDICATION: Not feeling well. Time of exam: 10:10 AM Correlation is made with prior chest from 01/19/2020. The heart is enlarged but stable. There are changes of median sternotomy and CABG. Cardiac defibrillator remains in place. Lungs appear to be clear. No infiltrate or failure is detected. No effusion or pneumothorax is detected. IMPRESSION: Stable chest. No acute feature is detected. Dictated by: Dictated on workstation # [id number]
--- OUTSIDE RECORDS SUMMARY | 2020-01-27 10:59 | XMS REPORT | Continuity of Care Document ---
Author Organization Unknown Address Unknown Phone Unavailable Allergies Active Description Code Type Severity Reaction Onset Reported/Identified Relationship to Patient Clinical Status Yes Iodinated Contrast- Oral and IV Dye [id number] Drug Allergy Unknown N/A 12/18/2011 Yes Iodinated Contrast Media [id number] Drug Allergy Unknown N/A 01/20/2020 Medications There is no data. Problems Date [...] OCASIOP Ot R5 2 PAIN, UNSPECIFIED 12/24/2018 AMRCELL OCASIO Ot M46.87 OT INFLAMMATORY SPONDYLOPATHIES, LUMBOS 12/24/2018 MARCELL OCASIOP Ot M47.816 SPONDYLOSIS W/O MYELOPATHY OR RADICULOPA 12/24/2018 MARCELL OCASIOP Ot R5 2 PAIN, UNSPECIFIED 05/18/2019 MARCELL OCASIO COOKING SHOW HOST Ot M46.87 OT INFLAMMATORY SPONDYLOPATHIES, LUMBOS 05/18/2019 [...] Z95 .1 PRESENCE OF AORTOCORONARY BYPASS GRAFT 01/22/2020 SANDRA HUNTER DO Ot I25.10 ATHSCL HEART DISEASE OF [place] CORONARY 01/22/2020 ROVENSTINE DO, SANDRA L Ot T82.198A [facility] COMPL OF OTHER CARDIAC ELECTRONIC D 01/22/2020 ROVENSTINE DO, SANDRA Roth Ot Z79.01 SHELTER (CURRENT) USE OF ANTICOAGULANT 01/22/2020 ROVENSTINE DO, SANDRA L Ot Z95.1 PRESENCE OF AORTOCORONARY BYPASS GRAFT 01/25/2020 ROVENSTINE DO, SANDRA L Ot I25.10 ATHSCL HEART DISEASE OF [place] CORONARY 01/25/2020 ROVENSTINE DO, SANDRA Roth Ot T82.198A [facility] COMPL OF OTHER CARDIAC ELECTRONIC D 01/25/2020 ROVENSTINE DO, SANDRA L Ot 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 01/25/2020 ROVENSTINE DO, SANDRA L Ot Z95.1 PRESENCE OF AORTOCORONARY BYPASS GRAFT Procedures There [...] poor plasma bycoagulation assay 33 s 24-35 Complete blood count (CBC) with automate d white blood cell (WBC) differential - 01/19/20 23:36 Blood leukocytes automated count (number/volume) 5.6 10*3/uL 4.3-11.0 Blood erythrocytes automated count (number/volume) 4.51 10*6/uL 4.35-5.85 Venous blood hemoglobin measurement (mass/volume) 13.9 g/dL 13.3-17.7 Blood hematocrit (volume fraction) 42 % 40-54 Automated erythrocyte mean corpuscular volume 92 [ foz_us] 80-99 Automated erythrocyte mean corpuscular h emoglobin (mass per erythrocyte) 31 pg 25-34 Automated erythrocyte mean corpuscular h emoglobin concentration measurement (mass/volume) 34 g/dL 32-36 Automated erythrocyte distribution width ratio 13. 7 % 10.0- 14.5 Automated blood platelet count (count/volume) 178 10*3/uL 130-400 Automated blood platelet mean volume measurement 11.7 [foz_us] 7.4-10.4 Automated blood neutrophils/100 leukocytes 54 % 42-75 Automated blood lymphocytes/100 leukocytes 29 % 12-44 Blood monocytes/100 leukocytes 11 % 0-12 Automated blood eosinophils/100 leukocytes 5 % 0-10 Automated blood basophils/100 leukocytes 1 % 0-10 Blood neutrophils automated count (number/volume) 3.0 10*3 1.8-7.8 Blood lymphocytes automated count (number/volume) 1.6 10*3 1.0-4.0 Blood monocytes automated count (number/volume) 0. 6 10*3 0.0-1.0 Automated eosinophil count 0.3 10*3/uL 0 .0-0.3 Automated blood basophil count (count/volume) 0.0 10*3/uL 0.0-0.1 PT panel in platelet poor plasma by coag ulation assay - 01/19/20 23:36 Prothrombin time (PT) in platelet poor plasma by coagu lation assay 15.8 s 12.2-14.7 INR in platelet poor plasma or blood by coagulation as say 1.2 0.8-1.4 Comprehensive metabolic panel - 01/19/20 23:36 Serum or plasma sodium measurement (moles/volume) 139 mmol/L 135-145 Serum or plasma potassium measurement (moles/volume) 4.1 mmol/L 3.6-5.0 Serum or plasma chloride measurement (moles/volume) 103 mmol/L 98-107 Carbon dioxide 24 mmol/L 21-32 Serum or plasma anion gap determination (moles/volume) 12 mmol/L 5-14 Serum or plasma urea nitrogen measurement (mass/volume ) 24 mg/dL 7-18 Serum or plasma creatinine measurement (mass/volume) 1.19 mg/dL 0.60-1.30 Serum or plasma urea nitrogen/creatinine mass ratio 20 NRG Serum or plasma creatinine measurement w ith calculation of estimated glomerular filtration rate > NRG Serum or plasma glucose measurement (mass/volume) 126 mg/dL 70-105 Serum or plasma calcium measurement (mass/volume) 9.5 mg/dL 8.5-10.1 Serum or plasma total bilirubin measurement (mass/volu me) 0.5 mg/dL 0.1-1.0 Serum or plasma alkaline phosphatase [place] surement (enzymatic activity/volume) 95 U/L 40-136 Serum or plasma aspartate aminotransfera se measurement (enzymatic activity/volume) 33 U/L 5-34 Serum or plasma alanine aminotransferase measurement (enzymatic activity/volume) 48 U/L 0-55 Serum or plasma protein measurement (mass/volume) 7.0 g/dL 6.4-8.2 Serum or plasma albumin measurement (mass/volume) 4.3 g/dL 3.2-4.5 CALCIUM CORRECTED 9.3 mg/dL 8.5-10.1 Magnesium - 01/19/20 23:36 Magnesium 1.8 mg/dL 1.6-2.4 TROPONIN I FS - 01/19/20 23:36 TROPONIN I FS < 0.30 <0.30 Encounters ACCT No. Visit Date/Time Discharge Status Pt. Type Provider Facility Loc./Unit Complaint [id number] 01/19/2020 23:26:00 01:08:00 DIS Outpatient SANDRA HUNTER DO [facility] FS DEFIBRILAVALERIE LOONEY [id number] 11/04/2019 11:11:00 02/26/2 020 23:59:59 CLS Outpatient SARAHI PARIS, CHER Mccabe [facility] LAB FS CBC MAGNESIUM BMP PROTIME PTT [id number] 11/04/2019 11:02:00 020 23:59:59 CLS Outpatient SARAHI PARIS, CHER Mccabe [facility] RAD FS Z95.1 I47.2 Z45.02 Z01.818 [id number] 12/23/2018 09:23:00 019 23:59:59 CLS Outpatient MARCELL OCASIO [facility] RAD FS R52; G57.02 [id number] 12/12/2018 08:26:00 019 23:59:59 CLS Outpatient NEHEMIAS PARIS, MADINA [facility] LAB FS 401.9
[2020-01-27 12:23] LABS: BASOPHILS % (AUTO) 1 % (0-10); EOSINOPHILS % (AUTO) 2 % (0-10); HEMATOCRIT 45 % (40-54); HEMOGLOBIN 14.8 G/DL (13.3-17.7); LYMPHOCYTES % (AUTO) 15 % (12-44); MEAN CORPUSCULAR HEMOGLOBIN 31 PG (25-34); MEAN CORPUSCULAR HGB CONC 33 G/DL (32-36); MEAN CORPUSCULAR VOLUME 93 FL (80-99); MEAN PLATELET VOLUME 12.2 FL (7.4-10.4); MONOCYTES % (AUTO) 11 % (0-12); NEUTROPHILS % (AUTO) 71 % (42-75); PLATELET COUNT 139 10^3/uL (130-400); RED CELL DISTRIBUTION WIDTH 13.7 % (10.0-14.5); WHITE BLOOD COUNT 5.3 10^3/uL (4.3-11.0)
[2020-01-27 12:23] LABS: INR 1.3 (0.8-1.4); PROTHROMBIN TIME PATIENT 16.2 SEC (12.2-14.7)
[2020-01-27 12:24] LABS: EOSINOPHILS # (AUTO) 0.1 10^3/uL (0.0-0.3); LYMPHOCYTES # (AUTO) 0.8 X 10^3 (1.0-4.0); MONOCYTES # (AUTO) 0.6 X 10^3 (0.0-1.0); NEUTROPHILS # (AUTO) 3.8 X 10^3 (1.8-7.8)
[2020-01-27 12:35] LABS: SODIUM 140 MMOL/L (135-145)
[2020-01-27 12:36] LABS: ALANINE AMINOTRANSFERASE 52 U/L (0-55); ALBUMIN 4.2 GM/DL (3.2-4.5); ALKALINE PHOSPHATASE 95 U/L (40-136); BILIRUBIN,TOTAL 0.8 MG/DL (0.1-1.0); BUN/CREATININE RATIO 13; CALCIUM 9.4 MG/DL (8.5-10.1); CARBON DIOXIDE 25 MMOL/L (21-32); CHLORIDE 102 MMOL/L (98-107); CREATININE SERUM 1.24 MG/DL (0.60-1.30); GFR ESTIMATED > 60; GLUCOSE 108 MG/DL (70-105); POTASSIUM 4.7 MMOL/L (3.6-5.0); TOTAL PROTEIN 7.3 GM/DL (6.4-8.2)
[2020-01-27] MEDS ORDERED: ONDA4TAB11 PO (13:08)
[2020-01-27 13:16] VITALS: BP 114/64
== END 2020-01-27 13:11 | disposition home or self-care (01) ==
LOC: EDUNIT# 09:57 → ER FS 09:59
DX: R55 Syncope and collapse (principal); I95.9 Hypotension, unspecified; R11.0 Nausea; I11.0 Hypertensive heart disease with heart failure; I50.9 Heart failure, unspecified; Z86.73 Personal history of transient ischemic attack (TIA), and cerebral infarction without residual deficits; Z95.1 Presence of aortocoronary bypass graft; Z91.041 Radiographic dye allergy status; Z79.01 Long term (current) use of anticoagulants; Z85.46 Personal history of malignant neoplasm of prostate
CPT/HCPCS: 36415; 71045; 80053; 83735; 83880; 84484; 85025; 85610; 85730; 93005

== ENCOUNTER 2020-01-28 22:42 | Inpatient (IN) | payer MEDICARE ==
[~2020-01-28] VITALS: Ht 180 cm; Wt 120.9 kg
[~2020-01-28 22:42] MED LIST changes: +ONDA4TAB11 PO
--- OUTSIDE RECORDS SUMMARY | 2020-01-28 22:54 | XMS REPORT | Continuity of Care Document ---
Author Organization Unknown Address Unknown Phone Unavailable Allergies Active Description Code Type Severity Reaction Onset Reported/Identified Relationship to Patient Clinical Status Yes Iodinated Contrast- Oral and IV Dye [id number] Drug Allergy Unknown N/A 12/18/2011 Yes Iodinated Contrast Media [id number] Drug Allergy Unknown N/A 01/20/2020 Medications There [...] R5 2 PAIN, UNSPECIFIED 05/18/2019 MARCELL OCASIO ELECTROPHYSIOLOGY TECH Ot M46.87 OT INFLAMMATORY SPONDYLOPATHIES, LUMBOS 05/18/2019 [...] DO Ot I25.10 ATHSCL HEART DISEASE OF [place] CORONARY 01/22/2020 ROVENSTINE DO, SANDRA L Ot T82.198A [facility] COMPL OF OTHER CARDIAC ELECTRONIC D 01/22/2020 ROVENSTINE DO, SANDRA Roth Ot Z79.01 CUSTODIAL (CURRENT) USE OF ANTICOAGULANT 01/22/2020 ROVENSTINE DO, SANDRA L Ot Z95.1 PRESENCE OF AORTOCORONARY BYPASS GRAFT 01/25/2020 ROVENSTINE DO, SANDRA L Ot I25.10 ATHSCL HEART DISEASE OF [place] CORONARY 01/25/2020 ROVENSTINE DO, SANDRA Roth Ot T82.198A [facility] COMPL OF OTHER CARDIAC ELECTRONIC D 01/25/2020 ROVENSTINE DO, SANDRA L Ot 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 01/25/2020 ROVENSTINE DO, [...] 23:36 TROPONIN I FS < 0.30 <0.30 PT panel in platelet poor plasma by coag ulation assay - 01/27/20 11:01 Prothrombin time (PT) in platelet poor plasma by coagu lation assay 16.2 s 12.2-14.7 INR in platelet poor plasma or blood by coagulation as say 1.3 0.8-1.4 Activated partial thromboplastin time (a PTT) in platelet poor plasma bycoagulation assay - 01/27/20 11:01 Activated partial thromboplastin time (a PTT) in platelet poor plasma bycoagulation assay 25 s 24-35 Complete blood count (CBC) with automate d white blood cell (WBC) differential - 01/27/20 11:45 Blood leukocytes automated count (number/volume) 5.3 10*3/uL 4.3-11.0 Blood erythrocytes automated count (number/volume) 4.84 10*6/uL 4.35-5.85 Venous blood hemoglobin measurement (mass/volume) 14.8 g/dL 13.3-17.7 Blood hematocrit (volume fraction) 45 % 40-54 Automated erythrocyte mean corpuscular volume 93 [ foz_us] 80-99 Automated erythrocyte mean corpuscular h emoglobin (mass per erythrocyte) 31 pg 25-34 Automated erythrocyte mean corpuscular h emoglobin concentration measurement (mass/volume) 33 g/dL 32-36 Automated erythrocyte distribution width ratio 13. 7 % 10.0- 14.5 Automated blood platelet count (count/volume) 139 10*3/uL 130-400 Automated blood platelet mean volume measurement 12.2 [foz_us] 7.4-10.4 Automated blood neutrophils/100 leukocytes 71 % 42-75 Automated blood lymphocytes/100 leukocytes 15 % 12-44 Blood monocytes/100 leukocytes 11 % 0-12 Automated blood eosinophils/100 leukocytes 2 % 0-10 Automated blood basophils/100 leukocytes 1 % 0-10 Blood neutrophils automated count (number/volume) 3.8 10*3 1.8-7.8 Blood lymphocytes automated count (number/volume) 0.8 10*3 1.0-4.0 Blood monocytes automated count (number/volume) 0. 6 10*3 0.0-1.0 Automated eosinophil count 0.1 10*3/uL 0 .0-0.3 Automated blood basophil count (count/volume) 0.0 10*3/uL 0.0-0.1 Comprehensive metabolic panel - 01/27/20 11:45 Serum or plasma sodium measurement (moles/volume) 140 mmol/L 135-145 Serum or plasma potassium measurement (moles/volume) 4.7 mmol/L 3.6-5.0 Serum or plasma chloride measurement (moles/volume) 102 mmol/L 98-107 Carbon dioxide 25 mmol/L 21-32 Serum or plasma anion gap determination (moles/volume) 13 mmol/L 5-14 Serum or plasma urea nitrogen measurement (mass/volume ) 16 mg/dL 7-18 Serum or plasma creatinine measurement (mass/volume) 1.24 mg/dL 0.60-1.30 Serum or plasma urea nitrogen/creatinine mass ratio 13 NRG Serum or plasma creatinine measurement w ith calculation of estimated glomerular filtration rate > NRG Serum or plasma glucose measurement (mass/volume) 108 mg/dL 70-105 Serum or plasma calcium measurement (mass/volume) 9.4 mg/dL 8.5-10.1 Serum or plasma total bilirubin measurement (mass/volu me) 0.8 mg/dL 0.1-1.0 Serum or plasma alkaline phosphatase [place] surement (enzymatic activity/volume) 95 U/L 40-136 Serum or plasma aspartate aminotransfera se measurement (enzymatic activity/volume) 32 U/L 5-34 Serum or plasma alanine aminotransferase measurement (enzymatic activity/volume) 52 U/L 0-55 Serum or plasma protein measurement (mass/volume) 7.3 g/dL 6.4-8.2 Serum or plasma albumin measurement (mass/volume) 4.2 g/dL 3.2-4.5 CALCIUM CORRECTED 9.2 mg/dL 8.5-10.1 Magnesium - 01/27/20 11:45 Magnesium 2.0 mg/dL 1.6-2.4 TROPONIN I FS - 01/27/20 11:45 TROPONIN I FS < 0.30 <0.30 PROBNP FS - 01/27/20 11:45 PROBNP FS 160.2 pg/mL <75.0 Encounters ACCT No. Visit Date/Time Discharge Status Pt. Type Provider Facility Loc./Unit Complaint [id number] 01/27/2020 09:59:00 13:11:00 DIS Emergency NEDRA ESCALONA DO [facility] ER FS LIGHTHEADED [id number] 01/19/2020 23:26:00 01:08:00 DIS Outpatient SANDRA HUNTER DO [facility] ER FS DEFIBRILATOR DI DANILORGE [id number] 11/04/2019 11:11:00 23:59:59 CLS Outpatient CHER MCCLAIN MD [facility] LAB FS CBC MAGNESIUM BMP PROTIME PTT [id number] 11/04/2019 11:02:00 020 23:59:59 CLS Outpatient SARAHI PARIS, CHER Mccabe [facility] RAD FS Z95.1 I47.2 Z45.02 Z01.818 [id number] 12/23/2018 09:23:00 019 23:59:59 CLS Outpatient MARCELL OCASIO [facility] RAD FS R52; G57.02 [id number] 12/12/2018 08:26:00 019 23:59:59 CLS Outpatient NEHEMIAS PARIS, MADINA seaman [facility] LAB FS 401.9 [id number] 01/28/2020 22:50:[address] Emergency CYNTHIA CHAMBERLAIN DO [facility] CP
[2020-01-28] MEDS ORDERED: morphine INJ 10 MG/ML 1ML (SYR OR VIAL) ONE (23:08)
[2020-01-28] MEDS ORDERED: morphine INJ 10 MG/ML 1ML (SYR OR VIAL) IV STA (23:13)
[2020-01-28 23:22] LABS: BASOPHILS % (AUTO) 0 % (0-10); EOSINOPHILS # (AUTO) 0.2 10^3/uL (0.0-0.3); EOSINOPHILS % (AUTO) 3 % (0-10); HEMATOCRIT 45 % (40-54); HEMOGLOBIN 14.9 G/DL (13.3-17.7); LYMPHOCYTES # (AUTO) 1.8 X 10^3 (1.0-4.0); LYMPHOCYTES % (AUTO) 25 % (12-44); MEAN CORPUSCULAR HEMOGLOBIN 31 PG (25-34); MEAN CORPUSCULAR HGB CONC 33 G/DL (32-36); MEAN CORPUSCULAR VOLUME 93 FL (80-99); MEAN PLATELET VOLUME 11.6 FL (7.4-10.4); MONOCYTES % (AUTO) 15 % (0-12); NEUTROPHILS % (AUTO) 57 % (42-75); PLATELET COUNT 156 10^3/uL (130-400); RED CELL DISTRIBUTION WIDTH 14.6 % (10.0-14.5); WHITE BLOOD COUNT 6.9 10^3/uL (4.3-11.0)
--- NOTE | 2020-01-28 23:22 | ED Chest Pain ---
General Chief Complaint: Cardiac/General Problems Stated Complaint: CP Nursing Triage Note: PAIN BEGAN AROUND 2214 DESCRIBES NAUSEA, TOO A NAUSEA PILL TODAY, 3/10 PAIN RATING AT THISTIME ARRIVES VIA EMS TO ROOM 3. NITRO X3 AND ASPARIN 324 ADMINSITERED ENROUTE. PATIENT IS ALERT ADN ORIENTED X4. Nursing Sepsis Screen: No Definite Risk Source: patient, EMS, old records History of Present Illness Date Seen by Provider: January 28, 2020 Time Seen by Provider: 23:02 Initial Comments PT ARRIVES VIA [facility] FROM [facility] PT C/O LEFT SIDED CHEST PAIN SINCE 2214 TONIGHT--WAS SITTING DOWN AND EATING WHEN PAIN BEGAN STATES PAIN WAS 9-10 / 10 AT WORST, IS 3-4/10 NOW EMS GAVE 4 BABY ASPIRIN, NTG SL X 3 AND MORPHINE 2 MG IV PRIOR TO ARRIVAL NO SHORTNESS OF BREATH NO PALPITATIONS NO DIZZINESS OR SYNCOPE NO SWEATS NO SWELLING IN LEGS/FEET OR PAIN IN CALVES--WEARS COMPRESSION STOCKINGS HAD SOME NAUSEA, BUT TOOK A NAUSEA PILL AT HOME AND THAT IS GONE NOW. PT HAS HAD CABG IN THE PAST PT ALSO HAS A DEFIBRILLATOR IN PLACE, AND HAD RECENTLY HAD ISSUES WITH IT DISCHARGING--LAST TIME HE HAD A DEFIBRILLATOR DISCHARGE WAS LAST Saturday01/19/20 PT WENT TO [facility] AT THAT TIME AND WAS TRANSFERRED TO [facility] AND UNDERWENT A CARDIAC CATH BUT DID NOT REQUIRE ANY INTERVENTION. WENT TO [facility] YESTERDAY 01/27/20 FOR NEAR SYNCOPAL EPISODE, SENT HOME SAW HIS PCP DR. DEL CID TODAY AND BLOOD PRESSURE WAS LOW, SO WAS INSTRUCTED TO HOLD HIS BLOOD PRESSURE MEDICATION TODAY AND START TAKING HALF DOSE BEGINNING TOMORROW. PT HAS TAKEN ALL OF HIS MORNING MEDICATIONS, INCLUDING ELIQUIS, BUT HAS NOT TAKEN ANY EVENING MEDICATIONS NO FEVER/SWEATS/CHILLS NO COUGH/CONGESTION OR SHORTNESS OF BREATH NO RECENT ILLNESS OR KNOWN SICK CONTACTS. NO KNOWN EXPOSURE TO CORONAVIRUS. NO RECENT TRAVEL PCP: DR. DEL CID, [facility] CLINICAL MANAGER: DR. PEDRAZA AT [facility] Allergies and Home Medications Allergies Coded Allergies: Iodinated Contrast Media (Unverified Allergy, Unknown, 01/20/20) Home Medications Amiodarone HCl 400 Mg Tablet, 400 MG PO BID, (Reported) FILLED 01-24-2020 #10/5 DAY SUPPLY Amlodipine Besylate 10 Mg Tablet, 10 MG PO DAILY, (Reported) Apixaban 5 Mg Tablet, 5 MG PO DAILY, (Reported) Aspirin 81 Mg Tablet.dr, 81 MG PO HS, (Reported) Atorvastatin Calcium 80 Mg Tablet, 80 MG PO HS, (Reported) LAST FILLED 10-19-2019 #13 Carvedilol 25 Mg Tablet, 25 MG PO BID, (Reported) Furosemide 40 Mg Tablet, 40 MG PO DAILY, (Reported) Hydralazine HCl 50 Mg Tablet, 50 MG PO TID, (Reported) Isosorbide Mononitrate 30 Mg Tab.er.24h, 30 MG PO DAILY, (Reported) Lisinopril 10 Mg Tablet, 10 MG PO DAILY, (Reported) Potassium Chloride 20 Meq Tab.er.prt, 20 MEQ PO DAILY, (Reported) Spironolactone 25 Mg Tablet, 12.5 MG PO DAILY, (Reported) Tamsulosin HCl 0.4 Mg Cap, 0.4 MG PO 1700, (Reported) Patient Home Medication List Home Medication List Reviewed: Yes Review of Systems Review of Systems Constitutional: no symptoms reported; No chills, No diaphoresis, No dizziness, No fever, No malaise, No weakness EENTM: No Symptoms Reported Respiratory: No Symptoms Reported; Denies Cough, Denies Orthopnea, Denies Shortness of Air, Denies Wheezing Cardiovascular: See HPI, Chest Pain; Denies Edema, Denies Irregular Heart Rate, Denies Lightheadedness, Denies Palpitations, Denies Syncope Gastrointestinal: See HPI; Denies Abdominal Pain, Denies Constipated, Denies Diarrhea; Nausea; Denies Poor Appetite, Denies Poor Fluid Intake, Denies Vomiting Genitourinary: No Symptoms Reported Musculoskeletal: no symptoms reported; No back pain Skin: no symptoms reported Psychiatric/Neurological: No Symptoms Reported Endocrine: No Symptoms Reported Hematologic/Lymphatic: No Symptoms Reported Past Ethmsuf-Ysuycv-Wxinvq Hx Past Med/Social Hx: Reviewed and Corrections made Patient Social History Alcohol Use: Occasionally Uses Alcohol Beverage of Choice: Other (URBANO) Recreational Drug Use: No Smoking Status: Former Smoker (1 PPD, QUIT SMOKING 1991) Type Used: Cigarettes 2nd Hand Smoke Exposure: No Recent Foreign Travel: No Contact w/Someone Who Travel: No Recent Infectious Disease Expo: No Past Medical History Surgeries: Yes Cardiac, CABG, Defibrillator, Pacemaker Respiratory: No Cardiac: Yes (CONGESTIVE HEART FAILURE;DVT L ARM;4 V CABG; ANGIOPLASTY;PACER/DEFIB;V-TACH) Atrial Fibrillation, Cardiomyopathy, Chronic Edema/Swelling, Coronary Artery Disease, Deep Vein Thrombosis, High Cholesterol, Hypertension, Irregular Heartbeat Neurological: Yes (CVA RIGHT SIDE WEAKNESS-RESOLVED) Stroke Reproductive Disorders: No Sexually Transmitted Disease: No Genitourinary: Yes (PROSTATE CANCER) Prostate Problems Gastrointestinal: No Musculoskeletal: No Endocrine: No HEENT: No Cancer: Yes Prostate Did You Recieve Any Treatments: Yes (RADIATION SEED IMPLANTS 2011) What Type of Treatment Did You: Radiation Psychosocial: No Integumentary: No Blood Disorders: No Family Medical History PSH: -CARDIAC CATHS: ANGIOPLASTY 1991; CATH AT [facility] 01/19/20--NO INTERVENTION -4 VESSEL CABG 2001 -PROSTATE SEED IMPLANTS 2011 -PACEMAKER/DEFIBRILLATOR--REPLACED 2019 Physical Exam Vital Signs Vital Signs - First Documented 01/28/20 01/28/20 23:00 23:03 Temp 36.8 Pulse 81 Resp 22 B/P (MAP) 130/71 (90) Pulse Ox 96 O2 Delivery Nasal Cannula O2 Flow Rate 2.00 FiO2 96 Capillary Refill : Less Than 3 Seconds Height, Weight, BMI Height: '" Weight: lbs. oz. kg; 36.00 BMI Method: General Appearance: No Apparent Distress, WD/WN HEENT: PERRL/EOMI Neck: Normal Inspection, Supple; No Carotid Bruit, No JVD Respiratory: Normal Breath Sounds, No Accessory Muscle Use, No Respiratory Distress Cardiovascular: Regular Rate, Rhythm, No JVD, No Murmur, Normal Peripheral Pulses Gastrointestinal: Non Tender, Soft Extremity: Normal Capillary Refill, No Pedal Edema (BUT WEARING COMPRESSION STOCKING) Neurologic/Psychiatric: Alert, Oriented x3, No Motor/Sensory Deficits, Normal Mood/Affect, director news II-XII Norm as Tested Skin: Normal Color (PT IS BLACK), Warm/Dry; No Rash Critical Care Note Critical Care Total Time (minutes) 30 Progress/Results/Core Measures Results/Orders Lab Results Laboratory Tests Test 01/28/20 23:04 Range/Units White Blood Count 6.9 4.3-11.0 10^3/uL Red Blood Count 4.87 4.35-5.85 10^6/uL Hemoglobin 14.9 13.3-17.7 G/DL Hematocrit 45 40-54 % Mean Corpuscular Volume 93 80-99 FL Mean Corpuscular Hemoglobin 31 25-34 PG Mean Corpuscular Hemoglobin Concent 33 32-36 G/DL Red Cell Distribution Width 14.6 H 10.0-14.5 % Platelet Count 156 130-400 10^3/uL Mean Platelet Volume 11.6 H 7.4-10.4 FL Neutrophils (%) (Auto) 57 42-75 % Lymphocytes (%) (Auto) 25 12-44 % Monocytes (%) (Auto) 15 H 0-12 % Eosinophils (%) (Auto) 3 0-10 % Basophils (%) (Auto) 0 0-10 % Neutrophils # (Auto) 4.0 1.8-7.8 X 10^3 Lymphocytes # (Auto) 1.8 1.0-4.0 X 10^3 Monocytes # (Auto) 1.0 0.0-1.0 X 10^3 Eosinophils # (Auto) 0.2 0.0-0.3 10^3/uL Basophils # (Auto) 0.0 0.0-0.1 10^3/uL Prothrombin Time 17.1 H 12.2-14.7 SEC INR Comment 1.3 0.8-1.4 Activated Partial Thromboplast Time 24 24-35 SEC Sodium Level 141 135-145 MMOL/L Potassium Level 3.9 3.6-5.0 MMOL/L Chloride Level 107 98-107 MMOL/L Carbon Dioxide Level 22 21-32 MMOL/L Anion Gap 12 5-14 MMOL/L Blood Urea Nitrogen 18 7-18 MG/DL Creatinine 1.59 H 0.60-1.30 MG/DL Estimat Glomerular Filtration Rate 51 BUN/Creatinine Ratio 11 Glucose Level 137 H 70-105 MG/DL Calcium Level 9.4 8.5-10.1 MG/DL Corrected Calcium 9.2 8.5-10.1 MG/DL Magnesium Level 2.2 1.6-2.4 MG/DL Total Bilirubin 0.9 0.1-1.0 MG/DL Aspartate Amino Transf (AST/SGOT) 23 5-34 U/L Alanine Aminotransferase (ALT/SGPT) 49 0-55 U/L Alkaline Phosphatase 89 40-136 U/L Total Creatine Kinase 103 30-200 U/L Creatine Kinase MB 2.2 <6.6 NG/ML Myoglobin 72.1 10.0-92.0 NG/ML Troponin I < 0.028 <0.028 NG/ML B-Type Natriuretic Peptide 31.6 <100.0 PG/ML Total Protein 7.6 6.4-8.2 GM/DL Albumin 4.3 3.2-4.5 GM/DL Amylase Level 72 25-125 U/L Lipase 65 8-78 U/L My Orders Orders - CYNTHIA CHAMBERLAIN DO Cbc With Automated Diff (01/28/20 23:13) Magnesium (01/28/20 23:13) Chest 1 View, Ap/Pa Only (01/28/20 23:13) Ekg Tracing (01/28/20:13) Comprehensive Metabolic Panel (01/28/20:) Myoglobin Serum (01/28/20 23:13) Protime With Inr (01/28/20 23:13) Partial Thromboplastin Time (01/28/20 23:13) O2 (01/28/20 23:13) Monitor-Rhythm Ecg Trace Only (01/28/20 23:13) Ed Iv/Invasive Line Start (01/28/20 23:13) Creatine Kinase (01/28/20 23:13) Creatine Kinase Mb (01/28/20 23:13) Lipase (01/28/20 23:13) Amylase (01/28/20 23:13) BNP (01/28/20 23:13) Morphine Injection (Morphine Injection (01/28/20 23:13) Morphine Injection (Morphine Injection (01/28/20 23:08) Troponin I (01/28/20 23:04) Vital Signs/I&O 01/28/20 01/28/20 23:00 23:03 Temp 36.8 Pulse 81 Resp 22 B/P (MAP) 130/71 (90) Pulse Ox 96 94 O2 Delivery Nasal Cannula Nasal Cannula O2 Flow Rate 2.00 FiO2 96 Blood Pressure Mean: 90 Progress Progress Note : Progress Note PT WAS GIVEN MORPHINE 4 MG ON ARRIVAL, FOR CHEST PAIN -RATED 3/10--HAD COMPLETE RELIEF OF PAIN AND IS RESTING COMFORTABLY JUST PRIOR TO PT BEING TRANSFERRED TO ICU, PT BEGAN TO HAVE SOME RETURN OF CHEST PAIN AND HE HAD 5 SHORT RUNS OF V-TACH--DEFIBRILLATOR NEVER DISCHARGED PT GIVEN AMIODARONE 150 MG BOLUS AND WILL START A DRIP WHEN HE ARRIVES ON THE UNIT. GIVEN TOPROL XL PO REPEAT EKG IS UNCHANGED PAIN RELIEVED WITH MORPHINE. Initial ECG Impression Date: January 28, 2020 Initial ECG Impression Time: 23:03 Initial ECG Rate: 81 Initial ECG Rhythm: Normal Sinus (LBBB) Initial ECG Comparisson: Unchanged EKG : EKG Time: 01:00 Rate: 88 Rhythm: Normal Sinus (LBBB) ECG Comparisson: Unchanged Diagnostic Imaging Comments CXR--NO ACUTE PROCESS, PENDING RADIOLOGIST REVIEW Reviewed: Reviewed by Me Departure Communication (Admissions) 2235--SPOKE WITH DR. BERRIOS, AFTER RECEIVING CALL FROM EMS FOR "STEMI" --PT HAS LBBB ON PRIOR EKG'S, INCLUDING RECENT ONES DONE AT [facility] ON 01/18 AND 01/27/20. HE ADVISES TO CALL HIM AFTER PT GETS HERE, AND I HAVE EVALUATED PT. 2313--GEOGRAPHIC INFORMATION SYSTEMS ANALYST IS TEXTING IMAGES OF PT'S EKG'S. 2327--SPOKE WITH DR. BERRIOS, HE ADVISES TO ADMIT TO HOSPITALIST, AND HE WILL SEE PT IN CONSULT. 0005--SPOKE WITH DR. TODD, HOSPITALIST, ACCEPTS PT FOR ADMIT. 0144--SPOKE WITH DR. BERRIOS AND UPDATE ON PT'S CONDITION GIVEN, REGARDING RUNS OF V-TACH AND PT BEING GIVEN AMIODARONE. HE AGREES WITH PLAN OF CARE. CONTINUE ELIQUIS AND ASPIRIN, NO ADDITIONAL ANTICOAGULATION AT THIS TIME. 0146--SPOKE WITH E-ICU PHYSICIAN AND REPORT GIVEN. Impression Primary Impression: Chest pain Additional Impressions: Nonsustained ventricular tachycardia LBBB (left bundle branch block) HX OF CAD WITH 4 VESSEL CABG Presence of combination internal cardiac defibrillator (ICD) and pacemaker Disposition: ADMITTED INPATIENT Condition: Improved Admissions Decision to Admit Reason: Admit from ER (General) Decision to Admit/Date: January 29, 2020 Time/Decision to Admit Time: 00:05 Departure-Patient Inst. Referrals: MADINA DEL CID MD (PCP/Family) Primary Care Physician CYNTHIA CHAMBERLAIN DO January 28, 2020 23:22
[2020-01-28 23:26] LABS: ALBUMIN 4.3 GM/DL (3.2-4.5); CHLORIDE 107 MMOL/L (98-107); POTASSIUM 3.9 MMOL/L (3.6-5.0)
[2020-01-28 23:27] LABS: SODIUM 141 MMOL/L (135-145)
[2020-01-28 23:28] LABS: AMYLASE 72 U/L (25-125); CALCIUM 9.4 MG/DL (8.5-10.1); INR 1.3 (0.8-1.4); PROTHROMBIN TIME PATIENT 17.1 SEC (12.2-14.7)
[2020-01-28 23:29] LABS: GLUCOSE 137 MG/DL (70-105); TOTAL PROTEIN 7.6 GM/DL (6.4-8.2)
[2020-01-28 23:30] LABS: CARBON DIOXIDE 22 MMOL/L (21-32)
[2020-01-28 23:31] LABS: BILIRUBIN,TOTAL 0.9 MG/DL (0.1-1.0)
[2020-01-28 23:32] LABS: ALKALINE PHOSPHATASE 89 U/L (40-136); CREATININE SERUM 1.59 MG/DL (0.60-1.30); GFR ESTIMATED 51
[2020-01-28 23:33] LABS: BUN/CREATININE RATIO 11
[2020-01-28 23:35] LABS: ALANINE AMINOTRANSFERASE 49 U/L (0-55)
[2020-01-28 23:36] LABS: MAGNESIUM 2.2 MG/DL (1.6-2.4)
[2020-01-28 23:37] LABS: CREATINE KINASE 103 U/L (30-200); LIPASE 65 U/L (8-78)
[2020-01-28 23:44] LABS: CREATINE KINASE MB 2.2 NG/ML (<6.6)
[2020-01-29] VITALS (24 sets, daily range): BP systolic 135–199; BP diastolic 73–113
--- OUTSIDE RECORDS SUMMARY | 2020-01-29 00:40 | XMS REPORT | Continuity of Care Document ---
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 RELATIONS MANAGER Ot M46.87 OT INFLAMMATORY SPONDYLOPATHIES, LUMBOS 05/18/2019 [...] DO Ot I25.10 ATHSCL HEART DISEASE OF [place] CORONARY 01/22/2020 ROVENSTINE DO, SANDRA L Ot T82.198A [facility] COMPL OF OTHER CARDIAC ELECTRONIC D 01/22/2020 ROVENSTINE DO, SANDRA Roth Ot Z79.01 MCC (CURRENT) USE OF ANTICOAGULANT 01/22/2020 ROVENSTINE DO, SANDRA L Ot Z95.1 PRESENCE OF AORTOCORONARY BYPASS GRAFT 01/25/2020 ROVENSTINE DO, SANDRA L Ot I25.10 ATHSCL HEART DISEASE OF [place] CORONARY 01/25/2020 ROVENSTINE DO, SANDRA Roth Ot T82.198A [facility] COMPL OF OTHER CARDIAC ELECTRONIC D 01/25/2020 ROVENSTINE DO, SANDRA L Ot Z79.01 FLATWORK IRONER (CURRENT) USE OF ANTICOAGULANT 01/25/2020 ROVENSTINE DO, [...] 01/27/20 11:45 PROBNP FS 160.2 pg/mL <75.0 Complete blood count (CBC) with automate d white blood cell (WBC) differential - 01/28/20 23:04 Blood leukocytes automated count (number/volume) 6.9 10*3/uL 4.3-11.0 Blood erythrocytes automated count (number/volume) 4.87 10*6/uL 4.35-5.85 Venous blood hemoglobin measurement (mass/volume) 14.9 g/dL 13.3-17.7 Blood hematocrit (volume fraction) 45 % 40-54 Automated erythrocyte mean corpuscular volume 93 [ foz_us] 80-99 Automated erythrocyte mean corpuscular h emoglobin (mass per erythrocyte) 31 pg 25-34 Automated erythrocyte mean corpuscular h emoglobin concentration measurement (mass/volume) 33 g/dL 32-36 Automated erythrocyte distribution width ratio 14. 6 % 10.0- 14.5 Automated blood platelet count (count/volume) 156 10*3/uL 130-400 Automated blood platelet mean volume measurement 11.6 [foz_us] 7.4-10.4 Automated blood neutrophils/100 leukocytes 57 % 42-75 Automated blood lymphocytes/100 leukocytes 25 % 12-44 Blood monocytes/100 leukocytes 15 % 0-12 Automated blood eosinophils/100 leukocytes 3 % 0-10 Automated blood basophils/100 leukocytes 0 % 0-10 Blood neutrophils automated count (number/volume) 4.0 10*3 1.8-7.8 Blood lymphocytes automated count (number/volume) 1.8 10*3 1.0-4.0 Blood monocytes automated count (number/volume) 1. 0 10*3 0.0-1.0 Automated eosinophil count 0.2 10*3/uL 0 .0-0.3 Automated blood basophil count (count/volume) 0.0 10*3/uL 0.0-0.1 Comprehensive metabolic panel - 01/28/20 23:04 Serum or plasma sodium measurement (moles/volume) 141 mmol/L 135-145 Serum or plasma potassium measurement (moles/volume) 3.9 mmol/L 3.6-5.0 Serum or plasma chloride measurement (moles/volume) 107 mmol/L 98-107 Carbon dioxide 22 mmol/L 21-32 Serum or plasma anion gap determination (moles/volume) 12 mmol/L 5-14 Serum or plasma urea nitrogen measurement (mass/volume ) 18 mg/dL 7-18 Serum or plasma creatinine measurement (mass/volume) 1.59 mg/dL 0.60-1.30 Serum or plasma urea nitrogen/creatinine mass ratio 11 NRG Serum or plasma creatinine measurement w ith calculation of estimated glomerular filtration rate 51 NRG Serum or plasma glucose measurement (mass/volume) 137 mg/dL 70-105 Serum or plasma calcium measurement (mass/volume) 9.4 mg/dL 8.5-10.1 Serum or plasma total bilirubin measurement (mass/volu me) 0.9 mg/dL 0.1-1.0 Serum or plasma alkaline phosphatase [place] surement (enzymatic activity/volume) 89 U/L 40-136 Serum or plasma aspartate aminotransfera se measurement (enzymatic activity/volume) 23 U/L 5-34 Serum or plasma alanine aminotransferase measurement (enzymatic activity/volume) 49 U/L 0-55 Serum or plasma protein measurement (mass/volume) 7.6 g/dL 6.4-8.2 Serum or plasma albumin measurement (mass/volume) 4.3 g/dL 3.2-4.5 CALCIUM CORRECTED 9.2 mg/dL 8.5-10.1 Magnesium - 01/28/20 23:04 Magnesium 2.2 mg/dL 1.6-2.4 Serum or plasma creatine kinase measurem ent (enzymatic activity/volume) - 01/28/20 23:04 Serum or plasma creatine kinase measurem ent (enzymatic activity/volume) 103 U/L 30-200 PT panel in platelet poor plasma by coag ulation assay - 01/28/20 23:04 Prothrombin time (PT) in platelet poor plasma by coagu lation assay 17.1 s 12.2-14.7 INR in platelet poor plasma or blood by coagulation as say 1.3 0.8-1.4 Activated partial thromboplastin time (a PTT) in platelet poor plasma bycoagulation assay - 01/28/20 23:04 Activated partial thromboplastin time (a PTT) in platelet poor plasma bycoagulation assay 24 s 24-35 Serum or plasma creatine kinase MB measu rement (enzymatic activity/volume) - 01/28/20 23:04 Serum or plasma creatine kinase MB measu rement (enzymatic activity/volume) 2.2 ng/mL <6.6 Serum or plasma troponin i.cardiac measu rement (mass/volume) - 01/28/20 23:04 Serum or plasma troponin i.cardiac measurement (mass/v olume) < ng/mL <0.028 Myoglobin, serum - 01/28/20 23:04 Myoglobin, serum 72.1 ng/mL 10.0-92.0 Serum or plasma amylase measurement (enz ymatic activity/volume) - 01/28/20 23:04 Serum or plasma amylase measurement (enzymatic activit y/volume) 72 U/L 25-125 Lipase - 01/28/20 23:04 Lipase 65 U/L 8-78 Serum or plasma lithium measurement (mol es/volume) - 01/28/20 23:04 BNP PT 31.6 pg/mL <100.0 Encounters ACCT No. Visit Date/Time Discharge Status Pt. Type Provider Facility Loc./Unit Complaint [id number] 01/27/2020 09:59:00 13:11:00 DIS Emergency NEDRA ESCALONA DO [facility] ER FS LIGHTHEADED [id number] 01/19/2020 23:26:00 01:08:00 DIS Outpatient ROVENARUN SANDRA ADKINS Gonzalez [facility] ER FS DEFIBRILATOR DI SCHARGE [id number] 11/04/2019 11:11:00 23:59:59 CLS Outpatient CHER MCCLAIN MD [facility] LAB FS CBC MAGNESIUM BMP PROTIME PTT [id number] 11/04/2019 11:02:00 23:59:59 CLS Outpatient CHER MCCLAIN MD [facility] RAD FS Z95.1 I47.2 Z45.02 Z01.818 [id number] 12/23/2018 09:23:00 23:59:59 CLS Outpatient MARCELL OCASIO [facility] RAD FS R52; G57.02 [id number] 12/12/2018 08:26:00 019 23:59:59 CLS Outpatient MADINA DEL CID MD [facility] LAB FS 401.9 [id number] 01/29/2020 00:05:[address] Inpatient WYATT TODD MD [facility] ICU CP;HX OF CAD W/CABG;LBBB;PACEMAKER/DEFIBRILLATOR
--- NOTE | 2020-01-29 00:50 | NUR ---
REPORT GIVEN TO EDUARD VALDERRAMA
[2020-01-29] MEDS ORDERED: morphine INJ 10 MG/ML 1ML (SYR OR VIAL) IVP STA (00:59)
[2020-01-29] MEDS ORDERED: meTOproloL SUCCINATE 50 MG (TOPROL XL) TAB PO SCH (01:00)
[2020-01-29] MEDS ORDERED: AMIODARONE FOR BOLUS 150 MG in D5W 100 ML IVPB 100 ML IV ONE (01:45)
[2020-01-29] MEDS ORDERED: AMIODARONE 450 MG/9 ML (CORDARONE) VIAL IV ONE (02:07)
[2020-01-29] MEDS ORDERED: D5W IV SOLUTION (EXCEL) 0 ML IV ONE (02:08)
[2020-01-29] MEDS: AMIODARONE 450 MG/250 ML D5W EXCEL IV SCH ×4 (02:15→09:45)
[2020-01-29] MEDS ORDERED: NITROGLYCERIN 0.4 MG SL TABS BTL 25'S SL PRN (02:30)
[2020-01-29] MEDS ORDERED: ONDANSETRON 4 MG/2 ML (SDV) Z0FRAN IV PRN (02:30)
[2020-01-29] MEDS ORDERED: morphine INJ 4 MG/ML 1 ML (VIAL/SYRINGE) IV PRN (02:30)
[2020-01-29 03:36] LABS: HEMATOCRIT 43 % (40-54); MEAN CORPUSCULAR HEMOGLOBIN 30 PG (25-34); MEAN CORPUSCULAR HGB CONC 33 G/DL (32-36); MEAN CORPUSCULAR VOLUME 93 FL (80-99); RED CELL DISTRIBUTION WIDTH 14.5 % (10.0-14.5); WHITE BLOOD COUNT 7.3 10^3/uL (4.3-11.0)
[2020-01-29 03:37] LABS: BASOPHILS % (AUTO) 0 % (0-10); EOSINOPHILS # (AUTO) 0.1 10^3/uL (0.0-0.3); EOSINOPHILS % (AUTO) 1 % (0-10); LYMPHOCYTES # (AUTO) 0.9 X 10^3 (1.0-4.0); LYMPHOCYTES % (AUTO) 12 % (12-44); MEAN PLATELET VOLUME 11.3 FL (7.4-10.4); MONOCYTES # (AUTO) 0.9 X 10^3 (0.0-1.0); MONOCYTES % (AUTO) 12 % (0-12); NEUTROPHILS # (AUTO) 5.4 X 10^3 (1.8-7.8); NEUTROPHILS % (AUTO) 75 % (42-75); PLATELET COUNT 170 10^3/uL (130-400)
[2020-01-29 03:47] LABS: ALBUMIN 4.1 GM/DL (3.2-4.5); POTASSIUM 4.1 MMOL/L (3.6-5.0)
[2020-01-29 03:48] LABS: CALCIUM 9.2 MG/DL (8.5-10.1)
[2020-01-29 03:51] LABS: BILIRUBIN,TOTAL 0.8 MG/DL (0.1-1.0)
[2020-01-29 03:53] LABS: CREATININE SERUM 1.51 MG/DL (0.60-1.30)
[2020-01-29 03:56] LABS: MAGNESIUM 2.1 MG/DL (1.6-2.4)
--- NOTE | 2020-01-29 05:00 | NUR ---
Informed teleICu of high blood pressures 170s/90s-100s. Patient complains of no chest pain. Troponin noted to be slightly elevated at 0.048. Will await orders.
[2020-01-29] MEDS ORDERED: hydrALAZINE (APESOLINE) 20 MG/ML VIAL IV ONE (05:15)
--- NOTE | 2020-01-29 07:15 | Diagnostic Imaging Report ---
Clinical indication: Patient with chest pain and nausea. Exam: Portable chest x-ray upright view. Comparisons: Chest x-ray dated 01/27/2020. Findings: Lungs/pleura: There is mild left basilar atelectasis. There is no definite lung infiltrates seen. There is no pneumothorax. There is no pleural effusion. Mediastinum: Unremarkable. Pulmonary vasculature: Stable mild prominence of the pulmonary vasculature centrally. Heart: Stable cardiomegaly. Stable postoperative changes to the chest consistent with CABG. Again seen cardiac pacemaker/AICD overlying the left chest. Bones/extrathoracic soft tissue: There are degenerative spurs involving the thoracic spine. Impression: 1: There is interval development of mild bibasilar atelectasis. 2: Otherwise, stable chest x-ray exam with mild cardiomegaly and mild pulmonary vascular congestion centrally. 3: Stable postoperative changes to the chest. Dictated by: Dictated on workstation # [id number]
[2020-01-29] MEDS ORDERED: ASPIRIN E.C. 81 MG (ECOTRIN) TAB PO SCH (09:00)
--- NOTE | 2020-01-29 09:00 | NUR ---
Pt son called this RN et updated on pt status
--- NOTE | 2020-01-29 10:22 | History & Physical-Hospitalist ---
History of Present Illness HPI/Chief Complaint Pt is a 79yoAAM with a PMH of CHF (EF 35%), HTD, HLD, CKD< CAD s/p CABG, LUE DVT, and CVA who presented to the ER due to chest pain. He states he was in the hospital on 01/18 due to his defibrillator firing. He was admitted at [facility] and had a heart cath which he states showed need for intervention per patient. He states his amiodarone was increased and he was discharged home. He was seen in the ER two days ago for a syncopal episode and was discharged home. He followed up with her PCP Dr Neves yesterday for hypotension and his hydralazine was discontinued. Last night while he was sitting at home eating [employer] he developed sudden central chest pain. He rated it a 9/10. He called EMS and they gave him aspirin, nitro, and morphine which improved his pain. He denies any shortness of breath, radiation of pain, diaphoresis, or nausea. He was admitted for chest pain rule out. Original troponin was negative and bumped to 0.048 this AM. He states he still has a slight chest discomfort but much improved from yesterday. Source: patient Date Seen 01/29/20 Time Seen by a Provider: 09:35 Attending Physician Alexia Dan MD PCP Bret Neves MD Referring Physician Date of Admission January 29, 2020 at 00:05 Home Medications & Allergies Home Medications Reviewed patient Home Medication Reconciliation performed by pharmacy medication reconciliations rv service technician and/or nursing. Patients Allergies have been reviewed. Allergies Allergies Coded Allergies Iodinated Contrast Media (Unverified Allergy, Unknown, 01/20/20) Past Cjmzqwo-Cpbksn-Syzgtp Hx Past Med/Social Hx: Reviewed Nursing Past Med/Soc Hx Patient Social History Marrital Status: Alcohol Use: Rarely Uses Recreational Drug Use: No Smoking Status: Unknown if Ever Smoked 2nd Hand Smoke Exposure: No Recent Foreign Travel: No Contact w/other who traveled: No Recent Hopitalizations: Yes (November FOR PACEMAKER, 01/18 for ACS rule out) Recent Infectious Disease Expo: No Immunizations Up To Date Tetanus Booster (TDap): More than 5yrs Date of Pneumonia Vaccine: January 28, 2017 Past Medical History Surgeries: Cardiac, CABG, Coronary Stent, Defibrillator, Pacemaker Cardiac: Coronary Artery Disease, Deep Vein Thrombosis (LUE), Heart Attack, High Cholesterol, Hypertension Neurological: Stroke Reproductive: No Sexually Transmitted Disease: No Genitourinary: Prostate Problems Cancer: Prostate Did You Recieve Any Treatments: Yes What Type of Treatment Did You: Chemotherapy History of Blood Disorders: No Family History Reviewed Nursing Family Hx Review of Systems Constitutional: No chills, No diaphoresis, No fever EENTM: no symptoms reported Respiratory: see HPI Cardiovascular: see HPI Gastrointestinal: No abdominal pain, No constipation, No diarrhea, No nausea, No vomiting Genitourinary: no symptoms reported Musculoskeletal: no symptoms reported Skin: no symptoms reported Psychiatric/Neurological: No Symptoms Reported Physical Exam Physical Exam Vital Signs Vital Signs - First Documented 01/28/20 01/28/20 23:00 23:03 Temp 36.8 Pulse 81 Resp 22 B/P (MAP) 130/71 (90) Pulse Ox 96 O2 Delivery Nasal Cannula O2 Flow Rate 2.00 FiO2 96 Capillary Refill : Less Than 3 Seconds Height, Weight, BMI Height: '" Weight: lbs. oz. kg; 36.00 BMI Method: General Appearance: No Apparent Distress, Chronically ill HEENT: Moist Mucous Membranes; No Scleral Icterus (L), No Scleral Icterus (R) Neck: Normal Inspection; No JVD Respiratory: Chest Non Tender, Lungs Clear, No Accessory Muscle Use, No Respiratory Distress Cardiovascular: Regular Rate, Rhythm, No Murmur Gastrointestinal: Normal Bowel Sounds, Non Tender, Soft Extremity: No Calf Tenderness, No Pedal Edema Neurologic/Psychiatric: Alert, Oriented x3, Normal Mood/Affect Skin: Normal Color, Warm/Dry Results Results/Procedures Labs Laboratory Tests 01/28/20 23:04 01/29/20 03:27 Patient resulted labs reviewed. Imaging: Reviewed Imaging Report Imaging Date of Exam:01/28/20 CHEST 1 VIEW, AP/PA ONLY Clinical indication: Patient with chest pain and nausea. Exam: Portable chest x-ray upright view. Comparisons: Chest x-ray dated 01/27/2020. Findings: Lungs/pleura: There is mild left basilar atelectasis. There is no definite lung infiltrates seen. There is no pneumothorax. There is no pleural effusion. Mediastinum: Unremarkable. Pulmonary vasculature: Stable mild prominence of the pulmonary vasculature centrally. Heart: Stable cardiomegaly. Stable postoperative changes to the chest consistent with CABG. Again seen cardiac pacemaker/AICD overlying the left chest. Bones/extrathoracic soft tissue: There are degenerative spurs involving the thoracic spine. Impression: 1: There is interval development of mild bibasilar atelectasis. 2: Otherwise, stable chest x-ray exam with mild cardiomegaly and mild pulmonary vascular congestion centrally. 3: Stable postoperative changes to the chest. Assessment/Plan Admission Diagnosis Chest Pain Admission Status: Observation Assessment and Plan Chest Pain CAD s/p CABG CHF with AICD placement- compensated HTN troponin elevated slightly overnight Monitor on telemetry Cardiology consulted, appreciate recs Continue home meds BP well controlled, trend for now Amiodarone gtt ordered ASA DORA Creatinine 1.5, up from 1.24 last week Trended down slightly from yesterday History of LUE DVT On Eliquis History of CVA No residual deficits per patient No acute management needs Clinical Quality Measures DVT/VTE Risk/Contraindication: Risk Factor Score Per Nursin RFS Level Per Nursing on Admit: 4+=Very High YANELY UGALDE MD January 29, 2020 10:22
[2020-01-29] MEDS ORDERED: HYDR-3924 PO (10:37)
[2020-01-29] MEDS ORDERED: AMLO10TA7 PO (10:37)
[2020-01-29] MEDS ORDERED: FURO40TA4 PO (10:37)
[2020-01-29] MEDS ORDERED: ISOS30TA3 PO (10:37)
[2020-01-29] MEDS ORDERED: LISI10TA2 PO (10:37)
[2020-01-29] MEDS ORDERED: ATOR80TA76 PO (11:12)
[2020-01-29] MEDS ORDERED: CLOPIDOGREL 300 MG (PLAVIX) TABLET PO ONE (11:30)
[2020-01-29] MEDS ORDERED: AMIO400T5 PO (11:55)
--- NOTE | 2020-01-29 11:56 | NUR ---
SPOKE WITH THE PT, WENT THRU THE EXT MED HISTORY, CALLED [facility] [place], [facility] COMPLETE THE MED REC AMIODARONE: ON THE EXT MED HISTORY IT SHOWS 400MG 1 TAB BID #10/5 DS PICKED UP ON 01-24-2020- WHEN THE PT WAS SEEN IN THE [facility] ED ON 01-19-2020 THERE WAS A MED LIST FROM [facility] DATED 12-02-2019 THAT WAS SCANNED IN HIS CHART AND IT LISTS AMIODARONE 200MG. PT THOUGHT HE WAS TAKING EITHER A LOWER STRENGTH OR ONLY TAKING ONCE DAILY BEFORE THE FILL ON 01-24-2020- HOWEVER I CAN NOT FIND ANY PHARMACY THAT HAS FILLED THIS MEDICATION (EITHER STRENGTH) BEFORE THE 01-24-[facility] (I ALSO CALLED [facility] IN [place] TO CHECK. I ALSO CALLED [facility] TO SEE WHERE A 200MG SCRIPT HAD BEEN SENT- THEY DO NOT SHOW ON ORDER BEING SENT BUT IT IS ON HIS CURRENT MED LIST). [facility] [place] DOES HAVE A SCRIPT ON HOLD FROM 01-27-2020 FOR AMIODARONE 400MG 1 TAB DAILY. WHEN I STARTED THE MED REC IT HAD AMIODARONE 200MG 1 TAB DAILY LISTED THAT WAS ENTERED ON 01-20-2020 IN THE ED- IM NOT SURE IF IT WAS ENTERED FROM THE MEDICATION LIST FROM [facility] BUT I REMOVED IT AND ENTERED THE 400MG 1 TAB BID X 5 DAYS ELIQUIS 5MG FILLED 01-18-2020 #180/90DS THRU THE [employer] (THIS IS THE ONLY MED THEY FILL FOR THE PT ATORVASTATIN 80MG LAST FILLED 10-19-2019 #13/13DS- I DID DOCUMENT THE PAST DUE FILL ON THE MED REC OTC MEDS: ASPIRIN 81
[2020-01-29] MEDS ORDERED: ASPI-983 PO (12:13)
[2020-01-29] MEDS: ENOXAPARIN 300 MG/3 ML (LOVENOX) MULTI-DOSE VIAL SQ SCH ×2 (12:34→23:09)
--- NOTE | 2020-01-29 18:34 | Consultation-Cardiology ---
HPI-Cardiology Cardiology Consultation: Date of Consultation 01/29/20 Date of Admission Attending Physician Alexia Dan MD Admitting Physician Bret Neves MD Consulting Physician Deon GARRETT MD HPI: Time Seen by a Provider: 10:00 Chief Complaint: Chest pain This is a 79-year-old gentleman who sees cardiology and EP in [facility]. He has complicated cardiac and medical history. He has history of systolic congestive heart failure with an EF of 35 percent with ICD implantation by [employer]. Recent history of ventricular tachycardia with ICD firing requiring admission at [facility] in [place] 10 days ago. Coronary angiography done at that point in time showed patent PATEL to the LAD, patent SVG to OM1, patent SVG to RCA, however SVG to first diagonal was occluded. Severe [place] occlusive disease. No intervention was done. Patient also has history of CAD/CABG as mentioned above. Hypertension, hyperlipidemia. Previous history of left upper extremity DVT and CVA. He presented with complains of chest pain. Chest pain was substernal with no significant exacerbation. Initially severe intensity 05/19. Does not complain of any other associated symptoms. His initial troponin was negative however his serial troponin was positive. This is therefore a new event. He denies active smoking. Negative pertinent family history. Review of Systems-Cardiology Review of Systems Constitutional: As described under HPI; No As described under HPI, No no symptoms reported, No chills, No fever, No lightheadedness Eyes: No As described under HPI, No no symptoms reported, No blindness, No blurred vision, No contact lenses, No drainage, No decreased acuity, No foreign body sensation, No pain, No vision change Ears/Nose/Throat: No As described under HPI, No no symptoms reported, No chronic hearing loss, No ear discharge, No ear pain, No nasal drainage, No ulcerations Respiratory: No no symptoms reported; As described under HPI; No As described under HPI, No cough, No orthopnea, No shortness of breath, No SOB with excertion Cardiovascular: No no symptoms reported; As described under HPI; No As described under HPI; chest pain; No edema, No irregular heart rate, No lightheadedness, No palpitations Gastrointestinal: No no symptoms reported, No As described under HPI, No abdomen distended, No abdominal pain, No blood streaked bowels, No constipation, No diarrhea, No nausea, No vomiting, No stool coloration changes Genitourinary: No As described under HPI, No burning, No dysuria, No discharge, No frequency, No flank pain, No hematuria, No urgency Skin: No rash, No skin related problems, No ulcerations Psychiatric/Neurological: No anxiety, No depression, No seizure, No focal weakness, No syncope Hematologic: No bleeding abnormalities FWA-[id number]-Zsryyb Hx Patient Social History Marrital Status: Alcohol Use: Rarely Uses Recreational Drug Use: No Smoking Status: Unknown if Ever Smoked 2nd Hand Smoke Exposure: No Recent Foreign Travel: No Recent Infectious Disease Expo: No Hospitalization with Isolation: Denies Immunizations Up To Date Tetanus Booster (TDap): More than 5yrs Date of Pneumonia Vaccine: January 28, 2017 Past Medical History PMH As described under Assessment. Allergies and Home Medications Allergies Coded Allergies: Iodinated Contrast Media (Unverified Allergy, Unknown, 01/20/20) Home Medications Amiodarone HCl 400 Mg Tablet, 400 MG PO BID, (Reported) FILLED 01-24-2020 #10/5 DAY SUPPLY Amlodipine Besylate 10 Mg Tablet, 10 MG PO DAILY, (Reported) Apixaban 5 Mg Tablet, 5 MG PO DAILY, (Reported) Aspirin 81 Mg Tablet.dr, 81 MG PO HS, (Reported) Atorvastatin Calcium 80 Mg Tablet, 80 MG PO HS, (Reported) LAST FILLED 10-19-2019 #13 Carvedilol 25 Mg Tablet, 25 MG PO BID, (Reported) Furosemide 40 Mg Tablet, 40 MG PO DAILY, (Reported) Hydralazine HCl 50 Mg Tablet, 50 MG PO TID, (Reported) Isosorbide Mononitrate 30 Mg Tab.er.24h, 30 MG PO DAILY, (Reported) Lisinopril 10 Mg Tablet, 10 MG PO DAILY, (Reported) Potassium Chloride 20 Meq Tab.er.prt, 20 MEQ PO DAILY, (Reported) Spironolactone 25 Mg Tablet, 12.5 MG PO DAILY, (Reported) Tamsulosin HCl 0.4 Mg Cap, 0.4 MG PO 1700, (Reported) Patient Home Medication List Home Medication List Reviewed: Yes Physical Exam-Cardiology Physical Exam Vital Signs/I&O 01/30/20 01/30/20 01/30/20 01/30/20 03:35 03:40 04:00 05:00 Temp 36.7 Pulse 57 57 Resp 18 19 B/P (MAP) 151/84 (106) Pulse Ox 97 95 97 O2 Delivery Nasal Cannula Nasal Cannula Nasal Cannula Nasal Cannula O2 Flow Rate 2.00 2.00 2.00 2.00 01/30/20 01/30/20 01/30/20 01/30/20 06:00 06:41 07:00 07:00 Pulse 59 57 55 Resp 19 14 B/P (MAP) 147/85 (105) 154/79 (104) Pulse Ox 97 95 O2 Delivery Nasal Cannula Room Air Room Air O2 Flow Rate 2.00 01/30/20 01/30/20 01/30/20 01/30/20 07:59 08:00 08:00 09:00 Temp 36.3 Pulse 64 58 Resp 17 17 B/P (MAP) 159/84 (109) 156/86 (109) Pulse Ox 96 96 95 O2 Delivery Room Air Room Air Room Air 01/30/20 01/30/20 01/30/20 01/30/20 11:00 12:00 12:00 12:00 Temp 36.1 Pulse 58 Resp 16 B/P (MAP) 133/82 (99) 143/84 (103) Pulse Ox 97 99 O2 Delivery Room Air Room Air Room Air 01/30/20 01/30/20 01/30/20 12:50 13:00 14:00 Pulse 59 58 64 Resp 17 14 B/P (MAP) 142/77 (98) Pulse Ox 98 97 O2 Delivery Room Air Room Air 01/30/20 00:00 Intake Total 1400 ml Output Total 1050 ml Balance 350 ml Capillary Refill : Less Than 3 Seconds Constitutional: appears stated age, AAO x 3; No apparent distress; well- developed, well-nourished HEENT: PERRL; No discharge; hearing is well preserved, oral hygience is good; No ulceration, No xanthelasmas are seen Neck: No carotid bruit; carotid pulses are 2 + bilaterally Respiratory: chest is bilaterally symmetric, lungs clear to auscultation; No crackles, No rhonchi, No wheezing, No pleural rub Cardiovascular: regular rate-rhythm, S1 and S2; No diastolic murmur, No systolic murmur Gastrointestinal: soft, audible bowel sounds; No spleenomegaly Rectal: deferred Extremities: normal range of motion, non-tender, normal inspection; No clubbing, No cyanosis; no lower extremity edema bilateral; No significant edema Neurologic/Psychiatric: no motor/sensory deficits, alert, normal mood/affect, oriented x 3, power is 5/5 both on sides Skin: normal color, warm/dry; No rash, No ulcerations Data Review Labs Laboratory Tests 01/30/20 03:04: White Blood Count 7.7, Red Blood Count 4.89, Hemoglobin 15.1, Hematocrit 45, Mean Corpuscular Volume 92, Mean Corpuscular Hemoglobin 31, Mean Corpuscular Hemoglobin Concent 34, Red Cell Distribution Width 14.1, Platelet Count 208, Mean Platelet Volume 11.2H, Neutrophils (%) (Auto) 67, Lymphocytes (%) (Auto) 15, Monocytes (%) (Auto) 16H, Eosinophils (%) (Auto) 2, Basophils (%) (Auto) 0, Neutrophils # (Auto) 5.2, Lymphocytes # (Auto) 1.1, Monocytes # (Auto) 1.2H, Eosinophils # (Auto) 0.1, Basophils # (Auto) 0.0, Sodium Level 136, Potassium Level 4.0, Chloride Level 105, Carbon Dioxide Level 21, Anion Gap 10, Blood Urea Nitrogen 12, Creatinine 1.17, Estimat Glomerular Filtration Rate > 60, BUN/Creatinine Ratio 10, Glucose Level 104, Calcium Level 9.2, Phosphorus Level 3.0, Magnesium Level 2.1 Microbiology 01/29/20 MRSA Screen - Final, Complete MRSA not isolated ECG Impression ECG Initial ECG Rhythm: Normal Sinus Comment Left bundle branch block. A/P-Cardiology Assessment/Admission Diagnosis Non-STEMI, CAD/CABG, Hypertension, Hyperlipidemia, Recent ventricular tachycardia, ICD, Previous history of DVT, Previous history of CVA. Plan Non-STEMI, initial troponin was negative. Second troponin was positive. This is therefore a new event and not related to his previous admission 7-10 days ago at [facility]. I discussed at length with the patient as well as patient's and son all over the phone. Since the patient had coronary angiography done at [facility] of week ago which showed 3 patent grafts with a SVG to first diagonal occluded. Severe occlusive [place] disease. Repeat coronary angiography is recommended. Informed consent was taken including 1 percent risk of complication including damage to the blood vessels, stroke, damage to the heart and even . Once the patient accepted all risks and complication, informed consent was signed and we will proceed with coronary angiography on 01/30/2020. Plavix bolus 300 mg was given. Patient will continue Lovenox hold morning dose. CAD/CABG, continue outpatient medical therapy. Hypertension, continue outpatient medical therapy. Hyperlipidemia, high-dose statin therapy. Recent ventricular tachycardia, current device interrogation did not reveal any sustained ventricular tachycardia or ventricular fibrillation. No ICD firing. ICD, no acute concerns. Previous history of DVT, follow clinically. No acute concerns. Previous history of CVA. Follow clinically. Complicated patient with numerous cardiac and medical issues. Thank you for your consultation. Please call me if you have any questions. Madisyn Garrett MD, FACP, FACC, FSCAI, FHRS, CCDS Interventional Cardiology Cardiac Electrophysiology Vascular Medicine and Endovascular Interventions Clinical Quality Measures DVT/VTE Risk/Contraindication: Risk Factor Score Per Nursin RFS Level Per Nursing on Admit: 4+=Very High Deon GARRETT MD January 29, 2020 18:34
[2020-01-30] VITALS (17 sets, daily range): BP systolic 133–186; BP diastolic 77–96
[2020-01-30 03:25] LABS: BASOPHILS % (AUTO) 0 % (0-10); EOSINOPHILS # (AUTO) 0.1 10^3/uL (0.0-0.3); EOSINOPHILS % (AUTO) 2 % (0-10); HEMATOCRIT 45 % (40-54); HEMOGLOBIN 15.1 G/DL (13.3-17.7); LYMPHOCYTES # (AUTO) 1.1 X 10^3 (1.0-4.0); LYMPHOCYTES % (AUTO) 15 % (12-44); MEAN CORPUSCULAR HEMOGLOBIN 31 PG (25-34); MEAN CORPUSCULAR HGB CONC 34 G/DL (32-36); MEAN CORPUSCULAR VOLUME 92 FL (80-99); MEAN PLATELET VOLUME 11.2 FL (7.4-10.4); MONOCYTES # (AUTO) 1.2 X 10^3 (0.0-1.0); MONOCYTES % (AUTO) 16 % (0-12); NEUTROPHILS # (AUTO) 5.2 X 10^3 (1.8-7.8); NEUTROPHILS % (AUTO) 67 % (42-75); PLATELET COUNT 208 10^3/uL (130-400); RED CELL DISTRIBUTION WIDTH 14.1 % (10.0-14.5); WHITE BLOOD COUNT 7.7 10^3/uL (4.3-11.0)
[2020-01-30 03:46] LABS: CHLORIDE 105 MMOL/L (98-107); SODIUM 136 MMOL/L (135-145)
[2020-01-30 03:48] LABS: CALCIUM 9.2 MG/DL (8.5-10.1); GLUCOSE 104 MG/DL (70-105)
[2020-01-30 03:50] LABS: CARBON DIOXIDE 21 MMOL/L (21-32)
[2020-01-30 03:52] LABS: CREATININE SERUM 1.17 MG/DL (0.60-1.30); GFR ESTIMATED > 60
[2020-01-30 03:53] LABS: BUN/CREATININE RATIO 10
[2020-01-30 03:54] LABS: MAGNESIUM 2.1 MG/DL (1.6-2.4)
--- NOTE | 2020-01-30 08:20 | Diagnostic Imaging Report ---
EXAMINATION: Chest 1 view HISTORY: Chest pain. Coronary artery disease. COMPARISON: Chest radiograph on 01/28/2020. FINDINGS: Stable cardiomegaly with stable configuration of the left pectoral ICD. Post-CABG changes are noted. There is improved aeration in the lung bases. No large pleural effusion or pneumothorax. No acute osseous abnormalities. IMPRESSION: 1. Improved bibasilar opacities, likely representing improving edema and/or atelectasis. 2. Stable cardiomegaly. Dictated by: Dictated on workstation # [id number]
[2020-01-30] MEDS ORDERED: HEParin (CATH LAB) 2,000 ML IV ONE (09:00)
[2020-01-30] MEDS ORDERED: NS IV 1000 ML 1,000 ML ONE (09:00)
[2020-01-30] MEDS ORDERED: LIDOCAINE 1% INJ 20 ML 20 ML VIAL ONE (09:00)
[2020-01-30] MEDS ORDERED: MIDAZOLAM 5 MG/5 ML (VERSED) VIAL ONE (09:13)
[2020-01-30] MEDS ORDERED: fentaNYL INJECTION 100 MCG/2 ML AMP ONE (09:13)
[2020-01-30] MEDS ORDERED: diphenhydrAMINE 50 MG/ML INJ (BENADRYL) ONE (09:26)
[2020-01-30] MEDS ORDERED: methylPREDNISolone 125 MG (Solu-MEDROL) VIAL ONE (09:26)
--- NOTE | 2020-01-30 09:40 | NUR ---
director of laboratory operations team in to take pt to cath
--- NOTE | 2020-01-30 10:05 | Progress Note - Hospitalist ---
Subjective HPI/CC On Admission Date Seen by Provider: January 30, 2020 Time Seen by Provider: 09:58 Pt is a 79yoAAM with a PMH of CHF (EF 35%), HTD, HLD, CKD< CAD s/p CABG, LUE DVT, and CVA who presented to the ER due to chest pain. He states he was in the hospital on 01/18 due to his defibrillator firing. He was admitted at [facility] and h ad a heart cath which he states showed need for intervention per patient. He states his amiodarone was increased and he was discharged home. He was seen in the ER two days ago for a syncopal episode and was discharged home. He followed up with her PCP Dr Neves yesterday for hypotension and his hydralazine was discontinued. Last night while he was sitting at home eating [employer] he developed sudden central chest pain. He rated it a 9/10. He called EMS and they gave him aspirin, nitro, and morphine which improved his pain. He denies any shortness of breath, radiation of pain, diaphoresis, or nausea. He was admitted for chest pain rule out. Original troponin was negative and bumped to 0.048 this AM. He states he still has a slight chest discomfort but much improved from yesterday. Subjective/Events-last exam Pt reports feeling well today. No further chest pain. Discussed with RN and heart rate was in 50s overnight. Also had short runs of V-Tach that [employer] rep called to inform her about. Objective Exam Vital Signs Vital Signs Date Time Temp Pulse Resp B/P (MAP) Pulse Ox O2 Delivery O2 Flow Rate FiO2 01/30/20 09:00 58 17 156/86 (109) 95 Room Air 01/30/20 07:59 36.3 01/30/20 06:00 2.00 01/29/20 02:30 96 Capillary Refill : Less Than 3 Seconds General Appearance: No Apparent Distress, WD/WN Respiratory: Lungs Clear, No Respiratory Distress Cardiovascular: Regular Rate, Rhythm, No Murmur Extremity: No Calf Tenderness, No Pedal Edema Neurologic/Psychiatric: Alert, Oriented x3, Normal Mood/Affect Results/Procedures Lab Laboratory Tests 01/30/20 03:04 Patient resulted labs reviewed. Imaging: Reviewed Imaging Report Assessment/Plan Assessment and Plan Assess & Plan/Chief Complaint Chest Pain CAD s/p CABG CHF with AICD placement- compensated HTN troponin continues to trend up slightly Monitor on telemetry Cardiology consulted, appreciate recs Continue home meds BP well controlled, trend for now Amiodarone gtt completed ASA Plan for cath today DORA Creatinine 1.17, improved History of LUE DVT On Eliquis History of CVA No residual deficits per patient No acute management needs Clinical Quality Measures DVT/VTE Risk/Contraindication: Risk Factor Score Per Nursin RFS Level Per Nursing on Admit: 4+=Very High YANELY UGALDE MD January 30, 2020 10:05
[2020-01-30] MEDS ORDERED: NS IV 1000 ML 1,000 ML IV SCH ×2 (10:15→10:45)
--- NOTE | 2020-01-30 10:44 | Cardiology Progress Note ---
Cardiology SOAP Progress Note Subjective: Mild chest discomfort. Objective: I&O/Vital Signs 01/30/20 01/30/20 01/30/20 01/30/20 03:35 03:40 04:00 05:00 Temp 36.7 Pulse 57 57 Resp 18 19 B/P (MAP) 151/84 (106) Pulse Ox 97 95 97 O2 Delivery Nasal Cannula Nasal Cannula Nasal Cannula Nasal Cannula O2 Flow Rate 2.00 2.00 2.00 2.00 01/30/20 01/30/20 01/30/20 01/30/20 06:00 06:41 07:00 07:00 Pulse 59 57 55 Resp 19 14 B/P (MAP) 147/85 (105) 154/79 (104) Pulse Ox 97 95 O2 Delivery Nasal Cannula Room Air Room Air O2 Flow Rate 2.00 01/30/20 01/30/20 01/30/20 01/30/20 07:59 08:00 08:00 09:00 Temp 36.3 Pulse 64 58 Resp 17 17 B/P (MAP) 159/84 (109) 156/86 (109) Pulse Ox 96 96 95 O2 Delivery Room Air Room Air Room Air 01/30/20 01/30/20 01/30/20 01/30/20 11:00 12:00 12:00 12:00 Temp 36.1 Pulse 58 Resp 16 B/P (MAP) 133/82 (99) 143/84 (103) Pulse Ox 97 99 O2 Delivery Room Air Room Air Room Air 01/30/20 01/30/20 01/30/20 12:50 13:00 14:00 Pulse 59 58 64 Resp 17 14 B/P (MAP) 142/77 (98) Pulse Ox 98 97 O2 Delivery Room Air Room Air 01/30/20 00:00 Intake Total 1400 ml Output Total 1050 ml Balance 350 ml Constitutional: No appears stated age; AAO x 3; No apparent distress, No PERRL, No well-developed, No well-nourished, No other Respiratory: chest is bilaterally symmetric, lungs clear to auscultation Cardiovascular: regular rate-rhythm, S1 and S2 Gastrointestional: soft, audible bowel sounds Extremities: normal range of motion, non-tender, normal inspection, no lower extremity edema bilateral Neurologic/Psychiatric: no motor/sensory deficits, alert, normal mood/affect, oriented x 3 Skin: normal color, warm/dry Results/Procedures: Labs Laboratory Tests 01/30/20 03:04: White Blood Count 7.7, Red Blood Count 4.89, Hemoglobin 15.1, Hematocrit 45, Mean Corpuscular Volume 92, Mean Corpuscular Hemoglobin 31, Mean Corpuscular Hemoglobin Concent 34, Red Cell Distribution Width 14.1, Platelet Count 208, Mean Platelet Volume 11.2H, Neutrophils (%) (Auto) 67, Lymphocytes (%) (Auto) 15, Monocytes (%) (Auto) 16H, Eosinophils (%) (Auto) 2, Basophils (%) (Auto) 0, Neutrophils # (Auto) 5.2, Lymphocytes # (Auto) 1.1, Monocytes # (Auto) 1.2H, Eosinophils # (Auto) 0.1, Basophils # (Auto) 0.0, Sodium Level 136, Potassium Level 4.0, Chloride Level 105, Carbon Dioxide Level 21, Anion Gap 10, Blood Urea Nitrogen 12, Creatinine 1.17, Estimat Glomerular Filtration Rate > 60, BUN/Creatinine Ratio 10, Glucose Level 104, Calcium Level 9.2, Phosphorus Level 3.0, Magnesium Level 2.1 Microbiology 01/29/20 MRSA Screen - Final, Complete MRSA not isolated A/P: Assessment/Dx: Non-STEMI, CAD/CABG, Hypertension, Hyperlipidemia, Recent ventricular tachycardia, ICD, Previous history of DVT, Previous history of CVA. Plan: Non-STEMI, initial troponin was negative. Second troponin was positive. This is therefore a new event and not related to his previous admission 7-10 days ago at [facility]. I discussed at length with the patient as well as patient's and son all over the phone. Since the patient had coronary angiography done at [facility] of week ago which showed 3 patent grafts with a SVG to first diagonal occluded. Severe occlusive [place] disease. Repeat coronary angiography is recommended. Informed consent was taken including 1 percent risk of complication including damage to the blood vessels, stroke, damage to the heart and even . Once the patient accepted all risks and complication, informed consent was signed and we will proceed with coronary angiography today. Plavix bolus 300 mg was given yesterday 01/29/2020. CAD/CABG, continue outpatient medical therapy. Hypertension, continue outpatient medical therapy. Hyperlipidemia, high-dose statin therapy. Recent ventricular tachycardia, current device interrogation did not reveal any sustained ventricular tachycardia or ventricular fibrillation. No ICD firing. Nonsustained ventricular tachycardia noted overnight. ICD, no acute concerns. Previous history of DVT, follow clinically. No acute concerns. Previous history of CVA. Follow clinically. Complicated patient with numerous cardiac and medical issues. Thank you for your consultation. Please call me if you have any questions. Madisyn Garrett MD, FACP, FACC, FSCAI, FHRS, CCDS Interventional Cardiology Cardiac Electrophysiology Vascular Medicine and Endovascular Interventions Deon GARRETT MD January 30, 2020 10:44
[2020-01-30] MEDS ORDERED: PATIENT MAY USE OWN MEDS, ALL PO SCH (10:45)
--- NOTE | 2020-01-30 10:45 | Cardiac Procedure Note-CS/ASA ---
Pre-Procedure Note Pre-Op Procedure Note H&P Reviewed The H&P was reviewed, patient examined and no changes noted. Date H&P Reviewed: January 30, 2020 Time H&P Reviewed: 09:50 Conscious Sedation Pre-Proced Time 09:50 ASA Score 3 For ASA 3 and 4: Consider anesthesia and medical clearance. Also, for patients with a history of failed moderate sedation consider anesthesia. Airway Lungs Heart ASA score ASA 1: a normal healthy patient ASA 2: a patient with a mild systemic disease (mid diabetes, controlled hypertension, obesity ASA 3: a patient with a severe systemic disease that limits activity (angina, COPD, prior Myocardial infarction) ASA 4: a patient with an incapacitating disease that is a constant threat to life (CHF, renal failure) ASA 5: a moribund patient not expected to survive 24 hrs. (ruptured aneurysm) ASA 6: a declared brain- patient whose organs are being harvested. For emergent operations, add the letter E after the classification Mallampati Classification Grade 1 Sedation Plan Analgesia, Amnesia, Plan communicated to team members, Discussed options with patient/fam, Discussed risks with patient/fam The patient is an appropriate candidate to undergo the planned procedure, sedation, and anesthesia. The patient immediately re-assessed prior to indication. Deon BERRIOS MD January 30, 2020 10:44
--- NOTE | 2020-01-30 10:45 | Coronary Angiography Report ---
Coronary Angiography Report DATE OF PROCEDURE: 01/30/20 INDICATION: Non-STEMI. History of CABG. PREOPERATIVE DIAGNOSIS: Non-STEMI. History of CABG. POSTOPERATIVE DIAGNOSIS: Severe three-vessel [place] disease HISTORY: This is a 79-year-old gentleman with previous history of CABG. He has history of ICD for ischemic cardiomyopathy. 10 days ago he was admitted at [facility] for recurrent VT. Coronary angiography at that point in time showed severe [place] disease with patent PATEL to the LAD, SVG to OM1 and SVG to RCA. An SVG to D1 was occluded. Patient presented to our ER with compla ins of chest pain. Initial troponin was negative. Serial troponins were positive suggesting a new ischemic event. Therefore, the patient was scheduled for coronary angiography. PROCEDURES PERFORMED: 1.Coronary angiography. 2.Left heart catheterization. 3. PATEL angiography. 4. Graft angiography. 5. Aortic arch angiogram: Medical necessity: To assess ostia of saphenous vein grafts. COMPLICATIONS: None. SPECIMENS: None. ESTIMATED BLOOD LOSS: 10 mL ANESTHESIA: Conscious sedation ANTICOAGULATION: IV heparin CONTRAST: 150 mL. FLUOROSCOPY: 9.9 minutes. FLOUROSCOPY DOSE: 1226 mgy. PROCEDURE DETAILS: The patient is a 79 male and was brought to the logging rafter laborer after informed consent was taken. All the risks and complications were explained in detail; this included the risk of bleeding, vascular damage, stroke, MA and even . The patient was draped and prepped in the usual sterile fashion. Access was gained in the right radial artery with a 6 [place] sheath. Coronary angiography and left heart catheterization was performed with a JR4, JL4 and an RDC, IMC catheter. FINDINGS: 1.Left main: 2.LAD: 3.Left circumflex artery: 4.RCA: Known chronic total occlusion of the mid RCA with right to right collaterals. 5.Left heart catheterization: LV pressure 112/6 mmHg. LVEDP 1 mmHg. Aortic pressure 116/61 mmHg. Reduced LV systolic function with an EF of 30-35 percent with global hypokinesis, however inferior akinesis is noted. No gradient across the aortic valve. 6. Saphenous vein grafts: Occluded saphenous vein graft to the first diagonal. Occluded saphenous vein graft to the RCA. Patent saphenous vein graft to OM1 with diffuse disease distally. 7. Patent PATEL to the mid LAD. Diffuse disease distally. However there is focal severe stenosis in the distal LAD after the distal anastomotic site but small caliber artery. 8. Aortic arch angiogram: No aneurysm or dissection. Proximal segments of the great arteries are patent. CONCLUSIONS: 1. Non-STEMI with likely culprit is saphenous vein graft to the RCA. [place] RCA is chronic total occlusion. Medical therapy is recommended. 2. Severe [place] CAD with known occluded graft to the diagonal. Patent PATEL to the LAD with diffuse distal disease small caliber artery. Patent SVG to OM1. Long-term Plavix therapy is recommended. 3. Aggressive secondary prevention measures. Madisyn Garrett MD, FACP, FACC, [facility] Interventional Cardiology Deon GARRETT MD January 30, 2020 10:45
[2020-01-30] MEDS ORDERED: CLOP75TA28 PO (11:27)
--- NOTE | 2020-01-30 11:30 | Discharge Inst-Simple/Standard ---
Discharge Inst-Standard Patient Instructions/Follow Up Plan of Care/Instructions/FU: Please contnue to take your medications as written. Please follow up with your vice president network and your primary care doctor, Dr Neves, next week to follow up this hospital stay. Activity as Tolerated: Yes Discharge Diet: Cardiac Diet Return to The Hospital For: Chest pain, shortness of breath, cough, fever, heart racing, defibrillator shocking you, if you feel you are getting worse. YANELY UGALDE MD January 30, 2020 11:30
[2020-01-30] MEDS: ENOXAPARIN 300 MG/3 ML (LOVENOX) MULTI-DOSE VIAL SQ SCH (14:05)
[2020-01-30] MEDS: TAMSULOSIN 0.4 MG (FLOMAX) CAP PO SCH (17:08)
[2020-01-30] MEDS ORDERED: MAGNESIUM 1 GM/100 ML IVPB 200 ML IV ONE (19:46)
[2020-01-30] MEDS ORDERED: AMIODARONE 200 MG (CORDARONE) TAB ONE (19:48)
[2020-01-30] MEDS ORDERED: CARVEDILOL 12.5 MG (COREG) TABLET ONE (19:48)
[2020-01-30] MEDS: AMIODARONE 200 MG (CORDARONE) TAB PO SCH (19:59)
[2020-01-30] MEDS: CARVEDILOL 12.5 MG (COREG) TABLET PO SCH (19:59)
[2020-01-30] MEDS: MAGNESIUM 1 GM/100 ML IVPB 100 ML IV SCH ×2 (20:00→21:28)
--- NOTE | 2020-01-30 20:00 | NUR ---
Timeline note below: At [address] Garrett that patient had a run of what appears to be Torsades with HR as high as 200's lasting approximately 20 seconds. Pt complaining of lightheadedness and chest pain, rating it 2-3 out of 10. STAT EKG obtained but patient back in Sinus Rhythm at that time with HR in 70's. New orders received at this time, see order hx and eMAR. EKG and rhythm strip sent to Dr. Garrett. 1942- Patient had second episode of what appeared to be Torsades with HR in 200's. This RN at bedside and notified Dr. Garrett and sent rhythm strip. 1949- Patient had third episode of what appeared to be Torsades with HR in 190's. This RN notified Dr. Garrett and sent rhythm strip. Order received to give above medications (see order hx and eMAR) and notify Dr. Garrett if it happens again. This RN will continue to monitor.
--- NOTE | 2020-01-30 21:35 | NUR ---
This RN at bedside, called pt's and son to give update. Patient was able to speak to them as well. Will continue to monitor.
[2020-01-31] VITALS (8 sets, daily range): BP systolic 133–153; BP diastolic 78–102
[2020-01-31 03:39] LABS: BASOPHILS # (AUTO) 0.1 10^3/uL (0.0-0.1); BASOPHILS % (AUTO) 1 % (0-10); EOSINOPHILS # (AUTO) 0.3 10^3/uL (0.0-0.3); EOSINOPHILS % (AUTO) 3 % (0-10); HEMATOCRIT 47 % (40-54); HEMOGLOBIN 16.4 G/DL (13.3-17.7); LYMPHOCYTES # (AUTO) 3.1 X 10^3 (1.0-4.0); LYMPHOCYTES % (AUTO) 33 % (12-44); MEAN CORPUSCULAR HEMOGLOBIN 31 PG (25-34); MEAN CORPUSCULAR HGB CONC 35 G/DL (32-36); MEAN CORPUSCULAR VOLUME 89 FL (80-99); MEAN PLATELET VOLUME 9.8 FL (7.4-10.4); MONOCYTES # (AUTO) 0.8 X 10^3 (0.0-1.0); MONOCYTES % (AUTO) 8 % (0-12); NEUTROPHILS # (AUTO) 5.3 X 10^3 (1.8-7.8); NEUTROPHILS % (AUTO) 56 % (42-75); PLATELET COUNT 296 10^3/uL (130-400); RED CELL DISTRIBUTION WIDTH 12.7 % (10.0-14.5); WHITE BLOOD COUNT 9.5 10^3/uL (4.3-11.0)
[2020-01-31 03:58] LABS: CHLORIDE 108 MMOL/L (98-107); POTASSIUM 4.3 MMOL/L (3.6-5.0); SODIUM 137 MMOL/L (135-145)
[2020-01-31 03:59] LABS: CALCIUM 8.7 MG/DL (8.5-10.1); GLUCOSE 87 MG/DL (70-105)
[2020-01-31 04:01] LABS: CARBON DIOXIDE 19 MMOL/L (21-32)
[2020-01-31 04:03] LABS: CREATININE SERUM 0.56 MG/DL (0.60-1.30); GFR ESTIMATED > 60; PHOSPHORUS 3.8 MG/DL (2.3-4.7)
[2020-01-31 04:04] LABS: BUN/CREATININE RATIO 13
[2020-01-31 04:05] LABS: MAGNESIUM 1.9 MG/DL (1.6-2.4)
[2020-01-31] MEDS: CLOPIDOGREL 75 MG (PLAVIX) TABLET PO SCH (09:13)
[2020-01-31] MEDS: CARVEDILOL 12.5 MG (COREG) TABLET PO SCH ×2 (09:13→21:30)
[2020-01-31] MEDS: AMIODARONE 200 MG (CORDARONE) TAB PO SCH ×2 (09:13→21:30)
[2020-01-31] MEDS: ASPIRIN E.C. 81 MG (ECOTRIN) TAB PO SCH (09:13)
--- NOTE | 2020-01-31 10:10 | Progress Note - Hospitalist ---
Subjective HPI/CC On Admission Date Seen by Provider: January 31, 2020 Time Seen by Provider: 10:06 Pt is a 79yoAAM with a PMH of CHF (EF 35%), HTD, HLD, CKD< CAD s/p CABG, LUE DVT, and CVA who presented to the ER due to chest pain. He states he was in the hospital on 01/18 due to his defibrillator firing. He was admitted at [facility] and h ad a heart cath which he states showed need for intervention per patient. He states his amiodarone was increased and he was discharged home. He was seen in the ER two days ago for a syncopal episode and was discharged home. He followed up with her PCP Dr Neves yesterday for hypotension and his hydralazine was discontinued. Last night while he was sitting at home eating [employer] he developed sudden central chest pain. He rated it a 9/10. He called EMS and they gave him aspirin, nitro, and morphine which improved his pain. He denies any shortness of breath, radiation of pain, diaphoresis, or nausea. He was admitted for chest pain rule out. Original troponin was negative and bumped to 0.048 this AM. He states he still has a slight chest discomfort but much improved from yesterday. Subjective/Events-last exam Pt reports feeling well today. Overnight had multiple runs of torsades per RN. Was given Magnesium and amiodarone per TeleICU Objective Exam Vital Signs Vital Signs Date Time Temp Pulse Resp B/P (MAP) Pulse Ox O2 Delivery O2 Flow Rate FiO2 01/31/20 08:00 65 136/81 (99) 97 Nasal Cannula 2.00 01/31/20 04:00 36.4 01/30/20 16:00 19 01/29/20 02:30 96 Capillary Refill : Less Than 3 Seconds General Appearance: No Apparent Distress, WD/WN Respiratory: Lungs Clear, No Respiratory Distress Cardiovascular: Regular Rate, Rhythm, No Murmur Gastrointestinal: Normal Bowel Sounds, Soft Extremity: No Calf Tenderness, No Pedal Edema Neurologic/Psychiatric: Alert, Oriented x3, Normal Mood/Affect Results/Procedures Lab Laboratory Tests 01/31/20 03:12 Patient resulted labs reviewed. Imaging: Reviewed Imaging Report Assessment/Plan Assessment and Plan Assess & Plan/Chief Complaint Chest Pain CAD s/p CABG CHF with AICD placement- compensated HTN Torsades de pointes Monitor on telemetry Cardiology consulted, appreciate recs Continue home meds BP well controlled, trend for now ASA, Plavix, statin Cath revealed RCA graft failure, not amenable to intervention per cardiology Continue amiodarone DORA- resolved Creatinine 0.56 History of LUE DVT On Eliquis History of CVA No residual deficits per patient No acute management needs Clinical Quality Measures DVT/VTE Risk/Contraindication: Risk Factor Score Per Nursin RFS Level Per Nursing on Admit: 4+=Very High YANELY UGALDE MD January 31, 2020 10:10
--- NOTE | 2020-01-31 13:26 | Cardiology Progress Note ---
Cardiology SOAP Progress Note Subjective: Polymorphic VT for 20 seconds twice last night. Objective: I&O/Vital Signs 01/31/20 01/31/20 01/31/20 01/31/20 04:00 04:00 07:00 07:00 Temp 36.4 Pulse 57 56 56 B/P (MAP) 152/102 (119) 145/ Pulse Ox 97 99 O2 Delivery Nasal Cannula Nasal Cannula O2 Flow Rate 2.00 2.00 01/31/20 01/31/20 08:00 09:00 Pulse 65 B/P (MAP) 136/81 (99) Pulse Ox 97 96 O2 Delivery Nasal Cannula Room Air O2 Flow Rate 2.00 01/31/20 00:00 Intake Total 1050 ml Output Total 550 ml Balance 500 ml Constitutional: No appears stated age; AAO x 3; No apparent distress, No PERRL, No well-developed, No well-nourished, No other Respiratory: chest is bilaterally symmetric, lungs clear to auscultation Cardiovascular: regular rate-rhythm, S1 and S2 Gastrointestional: soft, audible bowel sounds Extremities: normal range of motion, non-tender, normal inspection, no lower extremity edema bilateral Neurologic/Psychiatric: no motor/sensory deficits, alert, normal mood/affect, oriented x 3 Skin: normal color, warm/dry Results/Procedures: Labs Laboratory Tests 01/31/20 03:12: White Blood Count 9.5, Red Blood Count 5.29, Hemoglobin 16.4, Hematocrit 47, Mean Corpuscular Volume 89, Mean Corpuscular Hemoglobin 31, Mean Corpuscular Hemoglobin Concent 35, Red Cell Distribution Width 12.7, Platelet Count 296, Mean Platelet Volume 9.8, Neutrophils (%) (Auto) 56, Lymphocytes (%) (Auto) 33, Monocytes (%) (Auto) 8, Eosinophils (%) (Auto) 3, Basophils (%) (Auto) 1, Neutrophils # (Auto) 5.3, Lymphocytes # (Auto) 3.1, Monocytes # (Auto) 0.8, Eosinophils # (Auto) 0.3, Basophils # (Auto) 0.1, Sodium Level 137, Potassium Level 4.3, Chloride Level 108H, Carbon Dioxide Level 19L, Anion Gap 10, Blood Urea Nitrogen 7, Creatinine 0.56L, Estimat Glomerular Filtration Rate > 60, BUN/Creatinine Ratio 13, Glucose Level 87, Calcium Level 8.7, Phosphorus Level 3.8, Magnesium Level 1.9 Microbiology 01/29/20 MRSA Screen - Final, Complete MRSA not isolated A/P: Assessment/Dx: Non-STEMI, CAD/CABG, Hypertension, Hyperlipidemia, Polymorphic ventricular tachycardia, ICD, Previous history of DVT, Previous history of CVA. Plan: Non-STEMI, initial troponin was negative. Second troponin was positive. This is therefore a new event and not related to his previous admission 7-10 days ago at [facility]. I discussed at length with the patient as well as patient's and son all over the phone. Since the patient had coronary angiography done at [facility] of week ago which showed 3 patent grafts with a SVG to first diagonal occluded. Severe occlusive [place] disease. Repeat coronary angiography is recommended which was performed on 01/30/2020. It showed patent PATEL graft to the LAD. Diffuse small caliber vessel distally with one area of distal stenosis which is severe however very small caliber artery. Patent saphenous vein graft to the OM. Known occluded saphenous vein graft to the first diagonal. Occluded saphenous vein graft to the RCA which is new from the catheter done 10 days ago. [place] RCA is 100 percent occluded. This is likely the reason for non-STEMI. Treat with medical therapy with dual antiplatelet therapy and Lovenox. CAD/CABG, continue outpatient medical therapy. Hypertension, continue outpatient medical therapy. Hyperlipidemia, high-dose statin therapy. Polymorphic VT for 20 seconds 2 episodes last night. Magnesium 2 g IV given. Amiodarone 400 mg twice a day started. Metoprolol 50 mg twice a day given. Further medication was also given overnight. No further episodes overnight. I discussed at length with the patient and we mutually decided that we'll watch for another 24 hours and cardiac stepdown. If no further ventricular ectopy he will be discharged to follow up with Dr. sherman on Saturday. ICD, no acute concerns. Previous history of DVT, follow clinically. No acute concerns. Previous history of CVA. Follow clinically. Complicated patient with numerous cardiac and medical issues. Thank you for your consultation. Please call me if you have any questions. Madisyn Berrios MD, FACP, FACC, FSCAI, FHRS, CCDS Interventional Cardiology Cardiac Electrophysiology Vascular Medicine and Endovascular Interventions Deon BERIROS MD January 31, 2020 13:26
[2020-01-31] MEDS: TAMSULOSIN 0.4 MG (FLOMAX) CAP PO SCH (16:40)
[2020-02-01] VITALS: BP 149/88
[2020-02-01 02:00] VITALS: BP 112/67
[2020-02-01 03:51] LABS: HEMOGLOBIN 15.7 G/DL (13.3-17.7); WHITE BLOOD COUNT 9.7 10^3/uL (4.3-11.0)
[2020-02-01 03:52] LABS: BASOPHILS % (AUTO) 0 % (0-10); EOSINOPHILS # (AUTO) 0.1 10^3/uL (0.0-0.3); EOSINOPHILS % (AUTO) 1 % (0-10); HEMATOCRIT 46 % (40-54); LYMPHOCYTES # (AUTO) 1.4 X 10^3 (1.0-4.0); LYMPHOCYTES % (AUTO) 14 % (12-44); MEAN CORPUSCULAR HEMOGLOBIN 31 PG (25-34); MEAN CORPUSCULAR HGB CONC 34 G/DL (32-36); MEAN CORPUSCULAR VOLUME 91 FL (80-99); MEAN PLATELET VOLUME 11.5 FL (7.4-10.4); MONOCYTES # (AUTO) 1.2 X 10^3 (0.0-1.0); MONOCYTES % (AUTO) 12 % (0-12); NEUTROPHILS # (AUTO) 7.1 X 10^3 (1.8-7.8); NEUTROPHILS % (AUTO) 73 % (42-75); PLATELET COUNT 195 10^3/uL (130-400); RED CELL DISTRIBUTION WIDTH 14.2 % (10.0-14.5)
[2020-02-01 04:00] VITALS: BP 134/85
[2020-02-01 04:04] LABS: CHLORIDE 104 MMOL/L (98-107); POTASSIUM 4.4 MMOL/L (3.6-5.0); SODIUM 136 MMOL/L (135-145)
[2020-02-01 04:06] LABS: GLUCOSE 104 MG/DL (70-105)
[2020-02-01 04:08] LABS: CARBON DIOXIDE 22 MMOL/L (21-32)
[2020-02-01 04:10] LABS: CREATININE SERUM 1.23 MG/DL (0.60-1.30); GFR ESTIMATED > 60; PHOSPHORUS 3.2 MG/DL (2.3-4.7)
[2020-02-01 04:11] LABS: BUN/CREATININE RATIO 19
[2020-02-01 04:13] LABS: MAGNESIUM 2.4 MG/DL (1.6-2.4)
[2020-02-01 06:00] VITALS: BP 120/69
[2020-02-01 08:00] VITALS: BP 157/93
[2020-02-01] MEDS: ASPIRIN E.C. 81 MG (ECOTRIN) TAB PO SCH (08:03)
[2020-02-01] MEDS: CARVEDILOL 12.5 MG (COREG) TABLET PO SCH (08:04)
[2020-02-01] MEDS: CLOPIDOGREL 75 MG (PLAVIX) TABLET PO SCH (08:04)
[2020-02-01] MEDS: AMIODARONE 200 MG (CORDARONE) TAB PO SCH (08:04)
--- NOTE | 2020-02-01 14:21 | Cardiology Progress Note ---
Cardiology SOAP Progress Note Subjective: No cardiac complains overnight. Objective: I&O/Vital Signs 02/01/20 02/01/20 02/01/20 02/01/20 04:00 04:00 06:00 06:37 Temp 36.0 Pulse 68 48 50 B/P (MAP) 134/85 (101) 120/69 (86) Pulse Ox 100 97 96 O2 Delivery Nasal Cannula Nasal Cannula Nasal Cannula O2 Flow Rate 2.00 2.00 1.00 02/01/20 02/01/20 02/01/20 02/01/20 06:44 07:00 08:00 08:00 Temp 36.1 Pulse 50 59 B/P (MAP) 157/93 (114) Pulse Ox 97 98 O2 Delivery Nasal Cannula Nasal Cannula O2 Flow Rate 1.00 1.00 02/01/20 02/01/20 02/01/20 09:06 12:00 12:33 Temp 36.4 Pulse 56 Pulse Ox 97 O2 Delivery Room Air 02/01/20 00:00 Intake Total 1200 ml Output Total 1300 ml Balance -100 ml Constitutional: No appears stated age; AAO x 3; No apparent distress, No PERRL, No well-developed, No well-nourished, No other Respiratory: chest is bilaterally symmetric, lungs clear to auscultation Cardiovascular: regular rate-rhythm, S1 and S2 Gastrointestional: soft, audible bowel sounds Extremities: normal range of motion, non-tender, normal inspection, no lower extremity edema bilateral Neurologic/Psychiatric: no motor/sensory deficits, alert, normal mood/affect, oriented x 3 Skin: normal color, warm/dry Results/Procedures: Labs Laboratory Tests 02/01/20 03:24: White Blood Count 9.7, Red Blood Count 5.10, Hemoglobin 15.7, Hematocrit 46, Mean Corpuscular Volume 91, Mean Corpuscular Hemoglobin 31, Mean Corpuscular Hemoglobin Concent 34, Red Cell Distribution Width 14.2, Platelet Count 195, Mean Platelet Volume 11.5H, Neutrophils (%) (Auto) 73, Lymphocytes (%) (Auto) 14, Monocytes (%) (Auto) 12, Eosinophils (%) (Auto) 1, Basophils (%) (Auto) 0, Neutrophils # (Auto) 7.1, Lymphocytes # (Auto) 1.4, Monocytes # (Auto) 1.2H, Eosinophils # (Auto) 0.1, Basophils # (Auto) 0.0, Sodium Level 136, Potassium Level 4.4, Chloride Level 104, Carbon Dioxide Level 22, Anion Gap 10, Blood Urea Nitrogen 23H, Creatinine 1.23, Estimat Glomerular Filtration Rate > 60, BUN/Creatinine Ratio 19, Glucose Level 104, Calcium Level 9.0, Phosphorus Level 3.2, Magnesium Level 2.4 Microbiology 01/29/20 MRSA Screen - Final, Complete MRSA not isolated A/P: Assessment/Dx: Non-STEMI, CAD/CABG, Hypertension, Hyperlipidemia, Polymorphic ventricular tachycardia, ICD, Previous history of DVT, Previous history of CVA. Plan: Non-STEMI, initial troponin was negative. Second troponin was positive. This is therefore a new event and not related to his previous admission 7-10 days ago at [facility]. I discussed at length with the patient as well as patient's and son all over the phone. Since the patient had coronary angiography done at [facility] of week ago which showed 3 patent grafts with a SVG to first diagonal occluded. Severe occlusive [place] disease. Repeat coronary angiography is recommended which was performed on 01/30/2020. It showed patent PATEL graft to the LAD. Diffuse small caliber vessel distally with one area of distal stenosis which is severe however very small caliber artery. Patent saphenous vein graft to the OM. Known occluded saphenous vein graft to the fir st diagonal. Occluded saphenous vein graft to the RCA which is new from the catheter done 10 days ago. [place] RCA is 100 percent occluded. This is likely the reason for non-STEMI. Treat with medical therapy with dual antiplatelet therapy and Lovenox. CAD/CABG, continue outpatient medical therapy. Hypertension, continue outpatient medical therapy. Hyperlipidemia, high-dose statin therapy. Polymorphic VT for 20 seconds 2 episodes 01/30/2020. Magnesium 2 g IV given. Amiodarone 400 mg twice a day started. Metoprolol 50 mg twice a day given. Further medication was also given overnight. No further episodes since the evening of 01/30/2020. Since no further ventricular ectopy, no cardiac complaints will discharge the patient home to see Dr. Heart early next week. Patient and family understands. ICD, no acute concerns. Previous history of DVT, follow clinically. No acute concerns. Previous history of CVA. Follow clinically. Complicated patient with numerous cardiac and medical issues. Thank you for your consultation. Please call me if you have any questions. Madisyn Garrett MD, FACP, FACC, FSCAI, FHRS, CCDS Interventional Cardiology Cardiac Electrophysiology Vascular Medicine and Endovascular Interventions Deon GARRETT MD February 01, 2020 14:21
--- NOTE | 2020-02-02 07:45 | NUR ---
CM/SS: Late Entry: 01-29-2020 - Visited with pt as to plan for discharge Plan: Pt will return home - no identified services needed at this time Summary: Pt is known to this worker due to having lived in [place]. Pt reports that he was in [place] on last week. He is unsure of the day, but he does recall that it was at least a few days. Pt reports he felt better upon release and then got to not feeling as well. Pt reports a history of heart issues and that he has follow up with a flooring machine operator. He reports he lives at home with his and they have good family support with both sons living close. This worker will follow up.
--- NOTE | 2020-02-02 14:13 | Discharge Summary ---
Discharge Summary Hospital Course Was the Problem List Reviewed?: Yes Problems/Dx: (1) NSTEMI (non-ST elevation myocardial infarction) Status: Acute (2) Torsades de pointes Status: Acute (3) V-tach (4) CAD (coronary artery disease) Status: Acute Hospital Course Date of Admission: January 29, 2020 at 00:05 Admission Diagnosis : Chest pain Family Physician/Provider: Madina Neves MD Date of Discharge: 02/02/20 Discharge Diagnosis: NSTEMI, Torsades de pointes, [facility] Hospital Course: Trey Cruz is a 79-year-old male with past medical history of CHF (EF 35%), HTD, HLD, CKD< CAD s/p CABG, LUE DVT, and CVA, who presented with chest pain and was admitted with non-ST elevation myocardial infarction. He had recently been admitted at [facility] after his defibrillator fired and he underwent a cardiac catheterization with was normal. Cardiology was consulted during this hospitalization and performed repeat left heart catheterization. This revealed a total occlusion of the right coronary artery graft. Medical management was recommended. He was monitored on telemetry and subsequently developed torsades de pointes as well as short intermittent runs of V. tach. His amiodarone dose was increased. He was discharged in stable condition. He should follow-up with his programmer or analyst. Labs and Pending Lab Test: Microbiology 01/29/20 MRSA Screen - Final, Complete MRSA not isolated Home Meds Active Reported Amiodarone HCl 400 Mg Tablet 400 Mg PO BID 5 Days FILLED 01-24-2020 #10/5 DAY SUPPLY Atorvastatin Calcium 80 Mg Tablet 80 Mg PO HS LAST FILLED 10-19-2019 #13 Amlodipine Besylate 10 Mg Tablet 10 Mg PO DAILY Furosemide 40 Mg Tablet 40 Mg PO DAILY Lisinopril 10 Mg Tablet 10 Mg PO DAILY Isosorbide Mononitrate ER (Isosorbide Mononitrate) 30 Mg Tab.er.24h 30 Mg PO DAILY Flomax (Tamsulosin HCl) 0.4 Mg Cap 0.4 Mg PO 1700 Aldactone (Spironolactone) 25 Mg Tablet 12.5 Mg PO DAILY Potassium Chloride 20 Meq Tab.er.prt 20 Meq PO DAILY Eliquis (Apixaban) 5 Mg Tablet 5 Mg PO DAILY Carvedilol 25 Mg Tablet 25 Mg PO BID Assessment/Pt Instructions Take medications as prescribed. Follow up with cardiology. Return with worsening chest pain or trouble breathing. Discharge Planning: <30 minutes discharge planning Discharge Instructions Discharge Diet: Low Sodium Diet, Cardiac Diet Activity as Tolerated: Yes Consultations Cardiology Discharge Physical Examination Vital Signs Vital Signs Date Time Temp Pulse Resp B/P (MAP) Pulse Ox O2 Delivery O2 Flow Rate FiO2 02/01/20 15:01 02/01/20 12:33 56 02/01/20 12:00 36.4 02/01/20 09:06 97 Room Air 02/01/20 08:00 1.00 01/31/20 21:34 18 01/31/20 20:12 28 General Appearance: No Apparent Distress, WD/WN Respiratory: Lungs Clear, Normal Breath Sounds, No Respiratory Distress Cardiovascular: Regular Rate, Rhythm, No Edema, No Murmur Gastrointestinal: Normal Bowel Sounds, Non Tender, Soft Extremity: Normal Inspection, Non Tender, No Pedal Edema Skin: Normal Color, Warm/Dry Neurologic/Psychiatric: Alert, Oriented x3, No Motor/Sensory Deficits, Normal Mood/Affect Allergies: Coded Allergies: Iodinated Contrast Media (Unverified Allergy, Unknown, 01/20/20) Copy Copies To 1: MADINA NEVES MD Discharge Summary Date of Admission January 29, 2020 at 00:05 Date of Discharge February 01, 2020 at 13:35 Discharge Date: February 01, 2020 Discharge Time: 13:35 Admission Diagnosis Chest Pain Consults/Procedures Consulations Cardiology Discharge Diagnosis (1) NSTEMI (non-ST elevation myocardial infarction) Status: Acute (2) Torsades de pointes Status: Acute (3) V-tach (4) CAD (coronary artery disease) Status: Acute Clinical Quality Measures DVT/VTE Risk/Contraindication: Risk Factor Score Per Nursin RFS Level Per Nursing on Admit: 4+=Very High MAGNO MONTES DE OCA MD February 02, 2020 14:13
== END 2020-02-01 13:35 | disposition home or self-care (01) | DRG 281 ==
LOC: EDUNIT# 22:42 → ER 22:50 → OBSVTOIN 01-29 00:05 → ICU 01-29 00:05
PROVIDERS: ADMIT Internal Medicine; ATTEND Internal Medicine
PROC: 4A023N7 Measurement of Cardiac Sampling and Pressure, Left Heart, Percutaneous Approach (ICD-10-PCS; principal; 2020-01-30)
PROC: B2111ZZ Fluoroscopy of Multiple Coronary Arteries using Low Osmolar Contrast (ICD-10-PCS; 2020-01-30)
PROC: B2131ZZ Fluoroscopy of Multiple Coronary Artery Bypass Grafts using Low Osmolar Contrast (ICD-10-PCS; 2020-01-30)
PROC: B2151ZZ Fluoroscopy of Left Heart using Low Osmolar Contrast (ICD-10-PCS; 2020-01-30)
PROC: B2181ZZ Fluoroscopy of Left Internal Mammary Bypass Graft using Low Osmolar Contrast (ICD-10-PCS; 2020-01-30)
PROC: B3101ZZ Fluoroscopy of Thoracic Aorta using Low Osmolar Contrast (ICD-10-PCS; 2020-01-30)
DX: I21.4 Non-ST elevation (NSTEMI) myocardial infarction (principal); I47.2 Ventricular tachycardia; I11.0 Hypertensive heart disease with heart failure; I50.20 Unspecified systolic (congestive) heart failure; I25.810 Atherosclerosis of coronary artery bypass graft(s) without angina pectoris; I42.9 Cardiomyopathy, unspecified; N17.9 Acute kidney failure, unspecified; I25.10 Atherosclerotic heart disease of native coronary artery without angina pectoris; I25.82 Chronic total occlusion of coronary artery; I48.91 Unspecified atrial fibrillation; I44.7 Left bundle-branch block, unspecified; E78.5 Hyperlipidemia, unspecified; Z95.810 Presence of automatic (implantable) cardiac defibrillator; Z95.1 Presence of aortocoronary bypass graft; Z86.73 Personal history of transient ischemic attack (TIA), and cerebral infarction without residual deficits; Z85.46 Personal history of malignant neoplasm of prostate; Z92.21 Personal history of antineoplastic chemotherapy; Z86.718 Personal history of other venous thrombosis and embolism
CPT/HCPCS: 36221; 36415; 71045; 80048; 80053; 82150; 82550; 82553; 83690; 83735; 83874; 83880; 84100; 84484; 85025; 85610; 85730; 87081; 93005; 93041; 93306; 93459; 94664; 96374; 96375; 96376

== ENCOUNTER → 2020-06-03 | Outpatient (CLI) | payer MEDICARE ==
--- NOTE | 2020-04-01 13:19 | NUR ---
Pt did come for pulmonary function test, but is unable to perform test at this time. He stated that he currently has a productive cough for the past week and that his physician had instructed him to take mucinex. Pt stated that this cough is not a fdc symptom and only started last week. Due to COVID protocol, test rescheduled for 2 weeks out for pt to recover and be symptom free for test. Pt rescheduled for April 19 at 1030.
[~2020-06-03] MED LIST changes: +ACHD5005 PO; +AMIO400T5 PO; +AMLO10TA7 PO; +ASPI-1238 PO; +ATOR80TA76 PO; +CLOP75TA28 PO; +FURO40TA4 PO; +HYDR-3924 PO; -HYDR-83 PO; +LISI10TA2 PO; +RT-ALBUTEROL SULF 2.5 MG/3 ML PRE-MIX VIAL INH ONE
== END ==
LOC: RT 04-01 13:01
PROVIDERS: ATTEND Student in an Organized Health Care Education/Training Program
DX: J98.4 Other disorders of lung (principal); Z79.899 Other long term (current) drug therapy
CPT/HCPCS: 94060; 94726

== ENCOUNTER → 2020-09-28 | Outpatient (CLI) | payer MEDICARE ==
[~2020-09-28] MED LIST changes: -AMIO200T4 PO; +AMIO200T6 PO; +AMLO-251 PO; -AMLO10TA7 PO; -RT-ALBUTEROL SULF 2.5 MG/3 ML PRE-MIX VIAL INH ONE
--- NOTE | 2020-09-28 10:54 | Diagnostic Imaging Report ---
PROCEDURE: CT abdomen and pelvis without contrast. TECHNIQUE: Multiple contiguous axial images were obtained through the abdomen and pelvis without the use of intravenous contrast. Auto Exposure Controls were utilized during the CT exam to meet ALARA standards for radiation dose reduction. INDICATION: Hematuria. COMPARISON: No prior studies are available for comparison. FINDINGS: The lung bases are clear. No discrete liver mass is detected. Gallbladder is unremarkable. No biliary ductal dilatation is seen. Pancreas and spleen are unremarkable. No adrenal mass is detected. There is a rounded mass-like region in the lower pole of the right kidney approximately 4 cm in size, suspicious for a mass. A post contrast study would be recommended. A hyperdense lesion in the lower pole of the left kidney is noted measuring 15 mm. This is indeterminate. This could represent a hemorrhagic cyst or solid lesion. A cortical low density in the upper pole of the left kidney measures 14 mm and may represent a cyst. Aorta is calcified but nonaneurysmal. The iliac is markedly calcified. No central retroperitoneal or mesenteric lymphadenopathy is seen. Small and large bowel loops are normal in caliber. The patient does appear to have some diastasis of the rectus abdominis musculature with some anterior abdominal wall laxity. Bladder is unremarkable. Prostate contains multiple radiation seed implants. There is a fat-containing left inguinal hernia. No pelvic lymphadenopathy is detected. IMPRESSION: 1. There are findings suspicious for a solid mass involving the right kidney lower pole approximately 4 cm in size. Pre and post contrast CT or renal ultrasound would be recommended for further evaluation. 2. Hyperdense left lower pole renal lesion, indeterminate. This could be further evaluated as well with ultrasound or pre and post contrast CT. 3. No other significant abnormality is detected. Dictated by: Dictated on workstation # [id number]
== END ==
LOC: RAD FS 09:14
PROVIDERS: ATTEND Urology
DX: N28.89 Other specified disorders of kidney and ureter (principal); R31.29 Other microscopic hematuria; Z85.46 Personal history of malignant neoplasm of prostate
CPT/HCPCS: 74176

== ENCOUNTER → 2020-10-10 | Outpatient (CLI) | payer MEDICARE ==
--- NOTE | 2020-10-10 11:04 | Diagnostic Imaging Report ---
PROCEDURE: US Renal Bilateral. TECHNIQUE: Multiple real-time grayscale images were obtained over the kidneys in various projections bilaterally. INDICATION: Right renal mass noted on recent CT. COMPARISON: Correlation is made with recent CT from 09/28/2020. FINDINGS: Right kidney measures 12.6 x 6.2 x 6.1 cm and the left kidney measures 12.3 x 6.0 x 5.6 cm. There appears to be a solid mass in the lower pole of the right kidney measuring 5.2 x 4.7 x 4.5 cm. There is some internal vascularity present. The left kidney contains two cysts, largest in the midportion of approximately 19 mm in size. There is no hydronephrosis or calculi. Images of the bladder demonstrate the right ureteral jet. Left ureteral jet was not visualized. IMPRESSION: 1. Right lower pole solid renal mass. This should be considered renal cell carcinoma until proven otherwise. 2. Left renal cysts. No other significant abnormality is seen. Dictated by: Dictated on workstation # [id number]
== END ==
LOC: RAD FS 09:14
PROVIDERS: ATTEND Urology
DX: N28.89 Other specified disorders of kidney and ureter (principal); N28.1 Cyst of kidney, acquired
CPT/HCPCS: 76770

== ENCOUNTER 2020-12-13 13:42 | Emergency (ER) | payer MEDICARE, OTHER ==
[~2020-12-13] VITALS: Ht 177.8 cm; Wt 107.5 kg
[~2020-12-13 13:42] MED LIST changes: +ISOS30TA82 PO; -LISI10TA2 PO; +LISI10TA25 PO
--- NOTE | 2020-12-13 13:56 | ED Cardiac General ---
History of Present Illness General Chief Complaint: Cardiac/General Problems Stated Complaint: LOW BP (90/37) History of Present Illness Date Seen by Provider: Dec 13, 2020 Time Seen by Provider: 13:51 Initial Comments 80-year-old male presents with concerns of low blood pressure. Reports his blood pressure normally runs in the systolics around 120s over 60s. That he took 1 at home and it was 90s over 30s. Feels maybe little dizzy. He does take quite a bit of cardiac medications along with spironolactone and Lasix. He states he feels a little dizzy but otherwise no other complaints. Allergies and Home Medications Allergies Coded Allergies: Iodinated Contrast Media (Unverified Allergy, Unknown, 01/20/20) Home Medications Amiodarone HCl 400 Mg Tablet, 400 MG PO BID, (Reported) FILLED 01-24-2020 #10/5 DAY SUPPLY Amlodipine Besylate 10 Mg Tablet, 10 MG PO DAILY, (Reported) Apixaban 5 Mg Tablet, 5 MG PO DAILY, (Reported) Atorvastatin Calcium 80 Mg Tablet, 80 MG PO HS, (Reported) LAST FILLED 10-19-2019 #13 Carvedilol 25 Mg Tablet, 25 MG PO BID, (Reported) Furosemide 40 Mg Tablet, 40 MG PO DAILY, (Reported) Isosorbide Mononitrate 30 Mg Tab.er.24h, 30 MG PO DAILY, (Reported) Lisinopril 10 Mg Tablet, 10 MG PO DAILY, (Reported) Potassium Chloride 20 Meq Tab.er.prt, 20 MEQ PO DAILY, (Reported) Spironolactone 25 Mg Tablet, 12.5 MG PO DAILY, (Reported) Tamsulosin HCl 0.4 Mg Cap, 0.4 MG PO 1700, (Reported) Patient Home Medication List Home Medication List Reviewed: Yes Review of Systems Review of Systems Constitutional: no symptoms reported; No chills; dizziness; No fever EENTM: No Symptoms Reported Respiratory: Denies Cough Cardiovascular: Denies Chest Pain Gastrointestinal: Denies Abdominal Pain, Denies Diarrhea, Denies Nausea, Denies Vomiting Genitourinary: No Symptoms Reported Musculoskeletal: no symptoms reported Skin: no symptoms reported Psychiatric/Neurological: No Symptoms Reported Past Vtjupwy-Pljtdv-Owcwls Hx Past Med/Social Hx: Reviewed Nursing Past Med/Soc Hx Patient Social History Alcohol Beverage of Choice: Other Type Used: Cigarettes 2nd Hand Smoke Exposure: No Recent Hopitalizations: Yes (November FOR PACEMAKER, 01/18 for ACS rule out) Immunizations Up To Date Tetanus Booster (TDap): More than 5yrs Date of Pneumonia Vaccine: January 28, 2017 Past Medical History Surgeries: Yes Cardiac, CABG, Defibrillator, Pacemaker Respiratory: No Cardiac: Yes (CONGESTIVE HEART FAILURE;DVT L ARM;4 V CABG; ANGIOPLASTY;PACER/DEFIB;V-TACH) Atrial Fibrillation, Cardiomyopathy, Chronic Edema/Swelling, Coronary Artery Disease, Deep Vein Thrombosis, High Cholesterol, Hypertension, Irregular He artbeat Neurological: Yes (CVA RIGHT SIDE WEAKNESS-RESOLVED) Stroke Reproductive Disorders: No Sexually Transmitted Disease: No Genitourinary: Yes (PROSTATE CANCER) Prostate Problems Gastrointestinal: No Musculoskeletal: No Endocrine: No HEENT: No Cancer: Yes Prostate Did You Recieve Any Treatments: Yes What Type of Treatment Did You: Radiation Psychosocial: No Integumentary: No Blood Disorders: No Family Medical History PSH: -CARDIAC CATHS: ANGIOPLASTY 1991; [facility] 01/19/20--NO INTERVENTION -4 VESSEL CABG 2001 -PROSTATE SEED IMPLANTS 2011 -PACEMAKER/DEFIBRILLATOR--REPLACED 2019 Physical Exam Vital Signs Vital Signs - First Documented 12/13/20 13:48 Temp 36.4 Pulse 52 Resp 21 B/P (MAP) 132/66 (88) Pulse Ox 100 O2 Delivery Room Air Capillary Refill : Height, Weight, BMI Height: '" Weight: lbs. oz. 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 as Tested Skin: Normal Color, Warm/Dry Progress/Results/Core Measures Results/Orders Lab Results Laboratory Tests Test 12/13/20 14:00 Range/Units White Blood Count 4.3 4.3-11.0 10^3/uL Red Blood Count 3.91 L 4.35-5.85 10^6/uL Hemoglobin 12.2 L 13.3-17.7 G/DL Hematocrit 37 L 40-54 % Mean Corpuscular Volume 94 80-99 FL Mean Corpuscular Hemoglobin 31 25-34 PG Mean Corpuscular Hemoglobin Concent 33 32-36 G/DL Red Cell Distribution Width 14.7 H 10.0-14.5 % Platelet Count 164 130-400 10^3/uL Mean Platelet Volume 11.8 H 7.4-10.4 FL Immature Granulocyte % (Auto) 0 % Neutrophils (%) (Auto) 67 42-75 % Lymphocytes (%) (Auto) 18 12-44 % Monocytes (%) (Auto) 11 0-12 % Eosinophils (%) (Auto) 4 0-10 % Basophils (%) (Auto) 1 0-10 % Neutrophils # (Auto) 2.9 1.8-7.8 X 10^3 Lymphocytes # (Auto) 0.8 L 1.0-4.0 X 10^3 Monocytes # (Auto) 0.5 0.0-1.0 X 10^3 Eosinophils # (Auto) 0.2 0.0-0.3 10^3/uL Basophils # (Auto) 0.0 0.0-0.1 10^3/uL Immature Granulocyte # (Auto) 0.0 0.0-0.1 10^3/uL Sodium Level 139 135-145 MMOL/L Potassium Level 4.1 3.6-5.0 MMOL/L Chloride Level 103 98-107 MMOL/L Carbon Dioxide Level 26 21-32 MMOL/L Anion Gap 10 5-14 MMOL/L Blood Urea Nitrogen 21 H 7-18 MG/DL Creatinine 1.56 H 0.60-1.30 MG/DL Estimat Glomerular Filtration Rate 52 BUN/Creatinine Ratio 13 Glucose Level 125 H 70-105 MG/DL Calcium Level 9.2 8.5-10.1 MG/DL Magnesium Level 2.1 1.6-2.4 MG/DL My Orders Orders - CHANTEL ROBERSONVOR L DO Basic Metabolic Panel (12/13/20 14:01) Cbc With Automated Diff (12/13/20 14:01) Magnesium (12/13/20 14:01) Ua Culture If Indicated (12/13/20 14:01) Ed Iv/Invasive Line Start (12/13/20 14:01) Ns Iv 500 Ml (Sodium Chloride 0.9%) (4/6/21 14:15) Medications Given in ED Current Medications Medications Dose Ordered Sig/Danni Route Start Time Stop Time Status Last Admin Dose Admin Sodium Chloride 500 ml @ 0 mls/hr Q0M ONCE IV 12/13/20 14:15 12/13/20 14:16 DC 12/13/20 10:00 1,000 MLS/HR Vital Signs/I&O 12/13/20 13:48 Temp 36.4 Pulse 52 Resp 21 B/P (MAP) 132/66 (88) Pulse Ox 100 O2 Delivery Room Air Progress Progress Note : Time: 15:03 Progress Note Patient's blood pressures were close to his baseline's that he reports at home throughout his stay. Patient mild elevated BUN and creatinine. I did give him 500 IV bolus. Patient has not had any dizziness. Patient stable and will be discharged home Initial ECG Impression Date: Dec 13, 2020 Initial ECG Impression Time: 15:53 Initial ECG Rhythm: S.Ambrocio Initial ECG Intervals: AR (2728) Initial ECG Impression: Nonspecific Changes Comment Sinus Ambrocio, prolonged AR, no acute findings. Departure Impression Primary Impression: Bradycardia Additional Impressions: Hypotension due to drugs Hypotension due to hypovolemia Disposition: 01 HOME, SELF-CARE Condition: Stable Departure-Patient Inst. Referrals: MADINA DEL CID MD (PCP/Family) Primary Care Physician Patient Instructions: Low Blood Pressure (DC), Dealing with Low Blood Pressure from the Drugs You Take Add. Discharge Instructions: Follow-up with your primary care provider in the next week. All discharge instructions reviewed with patient and/or family. Voiced understanding. KARIN ROBERSON DO Dec 13, 2020 13:56
[2020-12-13] MEDS ORDERED: NS IV 500 ML 500 ML IV ONE (14:15)
[2020-12-13 14:21] LABS: BASOPHILS % (AUTO) 1 % (0-10); EOSINOPHILS # (AUTO) 0.2 10^3/uL (0.0-0.3); EOSINOPHILS % (AUTO) 4 % (0-10); HEMATOCRIT 37 % (40-54); HEMOGLOBIN 12.2 G/DL (13.3-17.7); LYMPHOCYTES # (AUTO) 0.8 X 10^3 (1.0-4.0); LYMPHOCYTES % (AUTO) 18 % (12-44); MEAN CORPUSCULAR HEMOGLOBIN 31 PG (25-34); MEAN CORPUSCULAR HGB CONC 33 G/DL (32-36); MEAN CORPUSCULAR VOLUME 94 FL (80-99); MEAN PLATELET VOLUME 11.8 FL (7.4-10.4); MONOCYTES # (AUTO) 0.5 X 10^3 (0.0-1.0); MONOCYTES % (AUTO) 11 % (0-12); NEUTROPHILS # (AUTO) 2.9 X 10^3 (1.8-7.8); NEUTROPHILS % (AUTO) 67 % (42-75); PLATELET COUNT 164 10^3/uL (130-400); WHITE BLOOD COUNT 4.3 10^3/uL (4.3-11.0)
[2020-12-13 14:44] LABS: CALCIUM 9.2 MG/DL (8.5-10.1); CREATININE SERUM 1.56 MG/DL (0.60-1.30); MAGNESIUM 2.1 MG/DL (1.6-2.4); POTASSIUM 4.1 MMOL/L (3.6-5.0)
[2020-12-13 15:20] VITALS: BP 112/59
== END 2020-12-13 15:23 | disposition home or self-care (01) ==
LOC: EDUNIT# 13:42 → ER FS 13:44
DX: I95.2 Hypotension due to drugs (principal); I95.89 Other hypotension; R00.1 Bradycardia, unspecified; I11.0 Hypertensive heart disease with heart failure; I50.9 Heart failure, unspecified; I48.91 Unspecified atrial fibrillation; I25.10 Atherosclerotic heart disease of native coronary artery without angina pectoris; I25.2 Old myocardial infarction; E78.00 Pure hypercholesterolemia, unspecified; Z86.718 Personal history of other venous thrombosis and embolism; Z95.1 Presence of aortocoronary bypass graft; Z95.810 Presence of automatic (implantable) cardiac defibrillator; Z86.73 Personal history of transient ischemic attack (TIA), and cerebral infarction without residual deficits; Z85.46 Personal history of malignant neoplasm of prostate; Z79.899 Other long term (current) drug therapy; Z79.01 Long term (current) use of anticoagulants; Z91.041 Radiographic dye allergy status
CPT/HCPCS: 36415; 80048; 83735; 85025; 93005

== ENCOUNTER → 2021-07-13 | Outpatient (CLI) | payer MEDICARE | LOC: ORTHO 12:16 | PROVIDERS: ATTEND Orthopaedic Surgery | DX: S82.002A Unspecified fracture of left patella, initial encounter for closed fracture (principal); X58.XXXA Exposure to other specified factors, initial encounter | CPT/HCPCS: 99202 ==

== ENCOUNTER → 2021-07-28 | Outpatient (CLI) | payer MEDICARE | LOC: ORTHO 09:30 | PROVIDERS: ATTEND Orthopaedic Surgery | DX: S82.002A Unspecified fracture of left patella, initial encounter for closed fracture (principal); X58.XXXA Exposure to other specified factors, initial encounter | CPT/HCPCS: 99212 ==

== ENCOUNTER → 2021-08-10 | Outpatient (CLI) | payer MEDICARE ==
[~2021-08-10] MED LIST changes: -AMIO200T6 PO; +AMIO200T65 PO; +POTA-179 PO; -POTA20TA15 PO
--- NOTE | 2021-08-10 12:54 | Diagnostic Imaging Report ---
INDICATION: Patellar fracture. TIME OF EXAM: 12:48 PM Comparison is made with outside study from 07/07/2021. FINDINGS: 3 views left knee again demonstrate fracture through the upper pole of the patella. Fracture line remains clearly visible. No displacement is seen. The distal femur as well as the proximal tibia and fibula are intact. Femoral popliteal artery atherosclerotic changes are noted. There is no effusion. IMPRESSION: No significant change in the upper pole patellar fracture when compared with exam from 07/07/2021. Fracture line remains clearly visible. Dictated by: Dictated on workstation # [id number]
== END ==
LOC: ORTHO 12:20
PROVIDERS: ATTEND Orthopaedic Surgery
DX: S82.035D Nondisplaced transverse fracture of left patella, subsequent encounter for closed fracture with routine healing (principal); X58.XXXD Exposure to other specified factors, subsequent encounter
CPT/HCPCS: 73560; 99212

== ENCOUNTER → 2021-09-21 | Outpatient (CLI) | payer MEDICARE ==
--- NOTE | 2021-09-21 14:35 | Diagnostic Imaging Report ---
Indication: Follow-up left knee fracture. TIME OF EXAM: 1:15 PM Correlation is made with prior radiograph from 08/10/2021. Upper pole patellar fracture is again noted, best seen on the lateral view. The fracture line remains clearly visible without evidence of significant healing. Alignment is anatomic. Knee joint spaces and articular surfaces are unremarkable. There is no effusion. IMPRESSION: Upper pole patellar fracture remains clearly visible without significant healing. Alignment is anatomic. Dictated by: Dictated on workstation # [id number]
== END ==
LOC: ORTHO 12:24
PROVIDERS: ATTEND Orthopaedic Surgery
DX: S82.035D Nondisplaced transverse fracture of left patella, subsequent encounter for closed fracture with routine healing (principal); X58.XXXD Exposure to other specified factors, subsequent encounter
CPT/HCPCS: 73560; G0463; 99212